=== PATIENT | male | born 1955 | race Caucasian/White ===

== ENCOUNTER → 2017-06-24 12:36 | Outpatient (CLI) | payer BC, SELFPAY ==
--- NOTE | 2017-06-24 12:45 | RAD_ITS ---
STUDY: X-RAY - RIGHT FOOT CLINICAL: Male, 62 years old. Fourth and fifth digit pain TECHNIQUE: 3 view(s) of the foot. COMPARISON: None. FINDINGS: Normal talus and tarsal bones. Calcaneal spurs Normal visualized subtalar, talonavicular, calcaneocuboid, tarsal and tarsometatarsal articulations. Normal metatarsi. Normal metatarsophalangeal joint of the great toe. Normal tibial and fibular sesamoid bones. Normal interphalangeal joint of the great toe. Normal phalanges of the great toe. Normal second through fifth metatarsophalangeal joints. Normal interphalangeal joints and phalanges of the lesser toes. The soft tissue structures are unremarkable. RAD/Foot min 3 Views IMPRESSION: Calcaneal spurs, no demonstrated fracture or aggressive osseous lesion Electronically Signed: Dami Martínez MD at 13:20 EDT , Service support ,
== END ==
PROVIDERS: Family Provider Family Medicine; PCP Family Medicine; Visit Provider Family Medicine
DX: M79.671 Pain in right foot (principal)
CPT/HCPCS: 73630

== ENCOUNTER → 2017-09-11 09:22 | Outpatient (CLI) | payer BC, SELFPAY ==
--- NOTE | 2017-09-11 09:26 | RAD_ITS ---
STUDY: X-RAY - RIGHT FOOT CLINICAL: Male, 62 years old. Pain. No injury. TECHNIQUE: 3 view(s) of the foot. COMPARISON: 06/24/2017. FINDINGS: There is a plantar calcaneal spur and there is a posterior calcaneal enthesophyte at the insertion site of the Achilles' tendon. Otherwise normal talus, calcaneus, and tarsal bones. Normal visualized subtalar, talonavicular, calcaneocuboid, tarsal and tarsometatarsal articulations. Normal metatarsi. There is mild degenerative arthrosis of the metatarsophalangeal joint of the hallux . Normal tibial and fibular sesamoid bones. Normal interphalangeal joint of the great toe. Normal phalanges of the great toe. Normal second through fifth metatarsophalangeal joints. Normal interphalangeal joints and phalanges of the lesser toes. There is nonspecific soft tissue swelling. RAD/Foot min 3 Views IMPRESSION: Mild degenerative changes. No demonstrated fracture, dislocation, or destructive osseous lesion. Electronically Signed: Binh Davidson MD at 5:52 EDT , Service support ,
[2017-09-11 12:17] LABS: Absolute Lymphocyte Count 1.25 X10^3/ul (0.83-4.51); Absolute Neutrophil Count 1.9 X10^3/uL (2.0-7.7); Basophil# 0.02 X10^3/uL; Basophil% 0.6 % (0-1); Eosinophil# 0.08 X10^3/uL; Eosinophils% 2.2 % (0-5); Hematocrit 42.2 % (40-54); Hemoglobin 14.1 g/dl (13.0-16.5); Lymphocyte # 1.25 X10^3/ul (4.0); Mean Corp Hgb Conc 33.4 g/gl (32-36); Mean Corpuscular Hgb 32.7 pg (27.0-32.0); Mean Corpuscular Volume 97.9 fL (80-94); Mean Platelet Vol. 11.5 fl (6.2-12.0); Monocyte# 0.36 X10^3/uL; Monocyte% 10.1 % (0-10); Neutrophil # 1.86 X10^3/uL (2.7-7.7); Neutrophil % 52.1 % (47-70); Platelet Count 174 K/mm3 (150-450); RBC Distribution Width CV 13.3 % (11.6-14.6); RBC Distribution Width SD 46.8 fl (35.1-43.9); Red Blood Count 4.31 M/mm3 (4.6-6.2); White Blood Count 3.6 K/mm3 (4.4-11.0)
[2017-09-11 12:36] LABS: AST(SGOT) 21 U/L (15-37); Alanine Aminotransfer ALT/SGPT 32 U/L (16-61); Albumin, Serum 3.8 g/dL (3.2-5.0); Alkaline Phosphatase 129 U/L (45-117); Anion Gap 4 (5-15); BUN 8 mg/dL (7-18); BUN/Creat Ratio 6.3 RATIO (10-20); Calcium,Total 8.9 mg/dL (8.5-10.1); Chloride 103 mmol/L (98-107); Cholesterol 148 mg/dL (200); Creatinine, Serum 1.26 mg/dL (0.70-1.30); EST Glomerular Filtration Rate 62 mL/min (>60); Est Glom Filt Rate - Afr Amer 75 mL/min (>60); Globulin 3.7 g/dL (2.2-4.2); Glucose 85 mg/dL (74-106); High Density Lipoprotein 41 mg/dL; Potassium 4.3 mmol/L (3.5-5.1); Protein, Total 7.5 g/dL (6.4-8.2); Sodium Level 138 mmol/L (136-145); Triglycerides 163 mg/dL; Very Low Density Lipoprotein 33 mg/dL (5-40)
[2017-09-11 12:42] LABS: POSITIVE COUNT NO; POSITIVE DIFFERENTIAL NO; POSITIVE MORPHOLOGY NO
== END ==
LOC: MTLAB 09:24
PROVIDERS: Family Provider Family Medicine; PCP Family Medicine; Visit Provider Family Medicine
DX: M79.671 Pain in right foot (principal); I10 Essential (primary) hypertension; D61.818 Other pancytopenia; Z12.5 Encounter for screening for malignant neoplasm of prostate
CPT/HCPCS: 36415; 73630; 80053; 80061; 85025

== ENCOUNTER → 2018-03-12 15:18 | Outpatient (CLI) | payer BC, SELFPAY ==
[2017-10-04 15:31] VITALS: BMI 26.6
--- NOTE | 2018-03-12 15:40 | RAD_ITS ---
STUDY: X-RAY CHEST REASON FOR EXAM: Male, 62 years old. Coronary artery disease. TECHNIQUE: PA and lateral views of the chest. COMPARISON: October 23, 2016. FINDINGS: The lungs are hyperinflated. There is chronic interstitial coarsening without acute infiltrate or mass. There is no demonstrated pleural abnormality. Normal size heart. Normal mediastinum and lalo. Normal visualized pulmonary arteries. There is atherosclerotic calcification of the aortic arch with tortuosity. There is dextroscoliosis and degenerative changes of the thoracic spine. There is degenerative osteoarthritis of the bilateral shoulders. There is no demonstrated abnormality of the visualized soft tissue structures of the upper abdomen. RAD/Chest PA and Lateral IMPRESSION: Question COPD without acute cardiopulmonary disease or interval change. Electronically Signed: Fabián Shanks DO at 16:15 EST Tel [phone], Service support ,
[2018-03-12 17:36] LABS: Hematocrit 42.4 % (40-54); Hemoglobin 13.9 g/dl (13.0-16.5); Mean Corp Hgb Conc 32.8 g/gl (32-36); Mean Corpuscular Hgb 32.6 pg (27.0-32.0); Mean Corpuscular Volume 99.3 fL (80-94); Mean Platelet Vol. 11.4 fl (6.2-12.0); Platelet Count 167 K/mm3 (150-450); RBC Distribution Width CV 13.2 % (11.6-14.6); RBC Distribution Width SD 47.2 fl (35.1-43.9); Red Blood Count 4.27 M/mm3 (4.6-6.2); White Blood Count 3.4 K/mm3 (4.4-11.0)
[2018-03-12 17:50] LABS: AST(SGOT) 16 U/L (15-37); Alanine Aminotransfer ALT/SGPT 31 U/L (16-61); Albumin, Serum 3.6 g/dL (3.2-5.0); Alkaline Phosphatase 127 U/L (45-117); Anion Gap 7 (5-15); BUN 10 mg/dL (7-18); BUN/Creat Ratio 8.3 RATIO (10-20); Calcium,Total 8.6 mg/dL (8.5-10.1); Chloride 106 mmol/L (98-107); EST Glomerular Filtration Rate 65 mL/min (>60); Est Glom Filt Rate - Afr Amer 79 mL/min (>60); Globulin 3.7 g/dL (2.2-4.2); Glucose 78 mg/dL (74-106); Potassium 3.7 mmol/L (3.5-5.1); Protein, Total 7.3 g/dL (6.4-8.2); Sodium Level 144 mmol/L (136-145)
[2018-03-12 18:10] LABS: Scan Indicated on CBC? Y/N NO
--- OUTSIDE RECORDS SUMMARY | 2018-04-28 20:42 | XMS RPT_ITS ---
:1955 Author Organization OHIP Care Team Providers Name Role Phone Tony Agosto Attending Unavailable Tony Agosto Referring Unavailable Tony Agosto Primary Care Unavailable Tony Agosto Attending Unavailable Tony Agosto Referring Unavailable [place] Unavailable José Santiago Attending Unavailable Ranney, Christopher Referring Unavailable Ranney, Christflaquitaer Attending Unavailable [place], Christopher Referring Unavailable [place] Unavailable Jack, José Attending Unavailable Ranney, Christopher Referring Unavailable Ranney, Christopher Primary Care Unavailable Joo Hicks Attending Unavailable Kurt, Joo Referring Unavailable [facility] Unavailable PROBLEMS PROBLEMS DATE TYPE CONDITION / CODE ATTENDING STATUS SOURCE 03/21/2018 Unknown M20.41 - Other Joo Hicks Active Georgi hammer toe(s) [facility] (acquired), [facility] Hospital foot / Repository M20.41(ICD-10) 03/12/2018 Unknown I25.10 - [facility] 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 / I25.10(ICD-10) 03/12/2018 Unknown Z01.818 - Encounter [facility] for other [facility] preprocedural Hospital examination / Repository Z01.818(ICD-10) 06/24/2017 Unknown M79.671 - Pain in [facility], [facility] right foot / [facility] M79.671(ICD-10) Hospital Repository PROCEDURES PROCEDURES No Procedure Records FoundRESULTS RESULTS OPERATIVE REPORT Observed: 03/21/2018 Status: F Source: GEORGI 9:31 PM [facility] REPOSITORY [facility] Medical Records Department [address] [place] [address] Operative Report 03/21/18 0836 MR#: [id number] Acct: [id number] Name: JOSE ENRIQUEWILLY Rep #: [id number] : 1955 62 From: Joo Hicks DPM PCP: Tony Agosto MD Status: [facility] [place] [facility] Report of Operation Date of Procedure: 03/21/18 Pre-Operative Diagnosis: Hammer toe 5th digit right foot. Wart/Callus with ingrown toenail medial border right 5th toe Post-Operative Diagnosis: Same Surgery/Procedure Performed:: Arthroplasty 5th toe right foot. Curettage with phenol application of wart/callus right foot. 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 Wart callus tissue from right 5th toe sent to pathology Description of Procedure: Indications: This is a 62 year-old male who has had chronic right foot pain to the 5th toes. He has trouble with shoes and with activities. He has tried nonsurgical care however his symptoms persist and are only getting worse. He was asking about surgical options. We discussed all of the options, and he elected to proceed with arthroplasty of the 5th toe w/ curettage and phenol application of wart/callus and P+A matricecomy medial border right 5th toe. This was discussed with him in great detail. We reviewed all the possible benefits, risks, goals and expectations. He expressed understanding and agreement. We also reviewed the typical postoperative and expected postoperative course. He expressed understanding and agreement and wanted to proceed forward with surgical intervention. All alternative options were discussed with him and all the possible benefits, risks of the alternative options were discussed with him as well in detail. He expressed understanding and agreement and again want to proceed for surgical intervention. The consent form was reviewed with him and he freely signed them. No guarantees were given or implied. Operative Procedure: The patient was brought back into the operating room and was placed onto the operative table in the supine position. He was carefully secured to the operating room table with safety belt around his waist. The patient did receive 2 g of intravenous cefazolin for antibiotic prophylaxis, the patient received anesthesia per the anesthesiologist. The skin w as cleansed with 70% Isopropyl alcohol and a total of 10mL of a 50/50 mixture of 1% Lidocaine plain and 0.5% Bupivacaine plain was given a a 5th ray block. A well-padded pneumatic tourniquet was applied around her right ankle. The right foot was scrubbed, prepped and draped in the usual aseptic fashion. Further attention was directed to the right 5th toe, which was contracted and hammered. There was a large prominence to the lateral aspect of the head of the proximal phalanx, there was a skin lesion to the distal medial toe consistent with a wart vs porokeratosis callus lesion, also the medial border of the 5th digit toenail was significantly incurvated. The right foot was elevated for 3 minutes and the right ankle pneumatic tourniquet was inflated to 250mmHg. Two oblique semi-elliptical converging skin incisions were made around the dorsal aspect of the proximal interphalangeal joint (PIPJ) of the 5th toe. The skin within the incisions was excised. The extensor digitorum longus tendon was visualized and incised transversely with a 15 blade. The dorsal PIPJ joint capsule was incised with a 15 blade. The extensor tendon was reflected off of the head of the proximal phalanx. The PIPJ was visulized, there was significant degenerative changes on the head of the proximal phalanx, the cartilage was completely worn away with erosions present. There was large exostosis to the distal lateral aspect of the head of the proximal phalanx. The head of the proximal phalanx was resected using a powered sagittal saw, and this was sent to pathology. The site was flushed out with copious amounts of normal saline solution. A 0.045 inch kwire was placed through the phalanges of the toe holding the toe in rectus position. This was confirmed with intra operative fluoroscopy. The site was again flushed out with copious amounts of normal saline solution. The joint capsule and extensor digitorum longus tendon was reapproximated using 3-0 Vicryl, the skin was reapproximated using 4-0 Nylon. The kwire was trimmed outside of the toe at the distal aspect and was capped with a pin cap. Further attention was directed to the skin lesion right 5th toe and incurvated medial nail border on the 5th toe. The medial nail border was freed up and resected. Phenol was applied to the medial nail matrix foe 30 seconds x 3 applications. The skin lesion was consistent with a wart, and was curetteged out. This was sent to pathology for further evaluation. Phenol was applied to the base of the site for 30 seconds. The sites were flushed out with 70% Isopropyl alcohol. The right ankle tourniquet was deflated and there was immediate return of warmth and perfusion to the foot, including all toes. CFT < 2 seconds to all toes with normal temperature. Total tourniquet time was 26 minutes. A dressing was applied which consisted of Betadine soaked Adaptic, 4x4 gauze, kerlix and stefania bandage. The patient tolerated the above procedure well and anesthesia well with no complications. The patient was transported from the operative room to the recovery room with vital signs stable and in good condition. Post operative orders were placed, and post operative instructions were reviewed with the patient and his who was with him today (verbal and written). Limit weightbearing right forefoot, keep the dressing clean, dry and intact. Keep foot elevated for at least 50 minutes of every hour. Post operative prescriptions for Tylenol #3 for pain control. Patient to follow up in 1 week, sooner if needed. Also of note post operative xrays were obtained of the right foot in the recovery room, which were reviewed. These confirmed arthroplasty of the 5th toe with kwire intact, and toe in good alignment. Grafts/Implants Used: 1 x 0.045 inch kwire - Complications None 03/21/182130 <Electronically signed by Joo Hicks DPM> Date Joo Hicks DPM CC: Tony Agosto MD; Joo Hicks DPM Signed DISCHARGE INSTRUCTION Observed: 03/21/2018 Status: F Source: GRANGER 8:36 AM [facility] REPOSITORY [facility] Medical Records Department [address] [place] [address] Instructions for Home/Discharge Instructions 03/21/18 0834 MR#: [id number] Acct: [id number] Name: WILLY QUISPE Rep #: [id number] : 1955 62 From: Joo Hicks DPM PCP: Tony Agosto MD Status: [place] [facility] [place] Diet: Light diet - advance as tolerated Discharge Activity: May Not Drive Weight Bearing Status: Partial weight bearing - Weightbear on heel right foot with use of surgical shoe Keep extremity elevated above heart level: Right Leg - Keep right foot elevated for at least 50 minutes of every hour using pillows Call your doctor if your incision/area has: Continuous Slow Oozing, Sudden Increased Bleeding, Increased Pain/ Swelling, Foul Smelling Discharge Call your doctor if you observe: Fever of 101 or Higher, Shortness of breath, Chest pain, Increased palpitations (irregular heartbeat), Calf discomfort, Uncontrolled pain Cleanse incision/area with: Do not get Incision Wet, Keep Dressing Clean AND Dry Allergies/Adverse Reactions: Allergies No Known Allergies Allergy (Verified 03/13/18 14:57) Medications to take at Discharge Aspirin [Aspirin EC] 81 mg PO DAILY 06/17/16 atorvastatin 40 mg tablet 40 mg PO DAILY #90 tab 03/06/17 nitroglycerin 0.4 mg sublingual tablet 0.4 mg SUBLINGUAL Q5M PRN 03/14/17 lisinopril 5 mg tablet 5 mg PO QDAY #90 tab 03/29/17 metoprolol tartrate 25 mg tablet 12.5 mg PO BID #90 tab 06/19/17 Acetaminophen/Codeine #3 [Tylenol#3] 1 - 2 tab PO Q6H PRN PRN #15 tab 03/21/18 The following prescriptions were given: Acetaminophen/Codeine #3 [Tylenol#3] 1 - 2 tab PO Q6H PRN PRN #15 tab PRN Reason: Pain Primary Care Physician: Santhosh Agosto MD [Primary Care Provider] - Test Results: Test results from this visit will be discussed in further detail at your follow-up appointment, if applicable. Please Follow Up With: Joo Hicks DPM When: within 1 week, sooner if needed 03/21/18 0836 <Electronically signed by Joo Hicks DPM> Date Joo Hicks DPM CC: Tony Agosto MD FOOT MIN 3 VIEWS Observed: 03/21/2018 Status: F Source: GE[place]GI 8:34 AM [facility] REPOSITORY [facility] Imaging Services [address] [place] [address] Foot min 3 Views MR#: [id number] Acct: [id number] Name: JOSE ENRIQUEWILLY Rep #: [id number] : 1955 M 62 From: Jamey Clement MD PCP: Tony Agosto MD Status: [facility] Study: Foot min 3 Views Date of Exam: 03/21/18 Exam# [id number] Ordering Dr: Joo Hicks DPM STUDY: X-RAY - RIGHT FOOT CLINICAL: Male, 62 years old. Right 5th toe arthroplasty. Postop. TECHNIQUE: 3 view(s) of the foot. COMPARISON: None. FINDINGS: There has been resection of the head of the proximal phalanx 5th digit. Longitudinal pin fixation through the proximal distal phalanx. Excellent anatomic alignment. Remainder of the foot are unremarkable. RAD/Foot min 3 Views IMPRESSION: Surgical construct appears intact. Correlate with operative technique. Electronically Signed: Jamey Clement MD at 10:29 EST Tel , Service support , CC: Tony Agosto MD; Joo Hicks DPM Content Checker: Signed BONE (FX/NONFRACTURE) Observed: 03/21/2018 Status: F Source: GE[place]GI 7:30 AM [facility] REPOSITORY Patient: WILLY QUISPE : 1955 (62/M) Acct Num: [id number] Phys: Joo Hicks DPM Unit Num: [id number] [place] [facility] Specimen: [id number] Received: 03/21/18 - 1026 Spec Type: Bone TISSUES 1 TISSUES: A. Bone of foot, NOS B. VERRUCA COMMENT B. The specimen consists entirely of keratin and superficial epidermis only. The lesion may represent superficial portions of a verruca. Clinical correlation is suggested. GROSS DESCRIPTION A - Received in fixative is one container labeled with the patient's name and designated second bone right fifth toe. The specimen consists of a piece of bone measuring 1.7 x 1 x 0.7 cm. Also present in the container is a detached piece of bone measuring 0.1 cm in greatest dimension. The entire specimen is submitted in one cassette after decalcification. B - Received in fixative is one container labeled with the patient's name and designated wart right fifth toe. The specimen consists of a piece of cook- white skin measuring 0.7 x 0.5 x 0.2 cm. The entire specimen is submitted in one cassette. / SJ:josé 03/21/18 TC:5 CPT: 78145 x2, 11556 HEADER OPERATION: Arthroplasty fifth toe PRE-OP DIAGNOSIS: Right foot pain TISSUE SUBMITTED: A - Second bone from right fifth toe, B - Wart right fifth toe MICROSCOPIC DESCRIPTION Slides are reviewed. MICROSCOPIC DIAGNOSIS A. Second bone from right fifth toe, biopsy: Reactive and mild reparative change. No evidence of osteomyelitis. B. Skin lesion of right fifth toe, biopsy: Hyperkeratotic skin. See comment. AM:josé 03/28/18 Signed Scott Ray, 03/28/18 <signature on file> Performed By: #### PBON #### [facility] [address] [place] [address]. [place], [address] TOE(S) MIN 2 VIEWS Observed: 03/21/2018 Status: F Source: GRANGER 2:09 AM [facility] REPOSITORY [facility] Imaging Services [address] [place] [address] Toe(s) Min 2 Views MR#: [id number] Acct: [id number] Name: WILLY QUISPE Rep #: [id number] : 1955 M 62 From: Jamey Clement MD PCP: Tony Agosto MD Status: [facility] Study: Toe(s) Min 2 Views Date of Exam: 03/21/18 Exam# [id number] Ordering Dr: oJo Hicks DPM STUDY: X-RAY RIGHT FOOT, 5TH TOE REASON FOR EXAM: Male, 62 years old. Arthroplasty 5th digit TECHNIQUE: 15 view(s) of the toe were obtained. Intraoperative fluoroscopy. The radiologist was not present during the procedure. Submitted for interpretation only. COMPARISON: None. FINDINGS: Images depict pin fixation between the proximal and distal phalanx of the 1st digit, the distal head of the proximal phalanx resected. Anatomic alignment achieved. RAD/Toe(s) Min 2 Views IMPRESSION: Anatomic alignment. Correlate operative report. Electronically Signed: Jamey Clement MD at 16:44 EST Tel , Service support , CC: Tony Agosto MD; Joo Hicks DPM Content Checker: Signed CHEST PA AND LATERAL Observed: 03/12/2018 Status: F Source: GRANGER 3:45 PM [facility] REPOSITORY [facility] Imaging Services [address] [address] Chest PA and Lateral MR#: [id number] Acct: [id number] Name: JOSE ENRIQUEWILLY Rep #: [id number] : 1955 M 62 From: Fabián Shanks DO PCP: Tony Agosto MD Status: REG CLI Study: Chest PA and Lateral Date of Exam: 03/12/18 Exam# [id number] Ordering Dr: Santhosh Agosto MD STUDY: X-RAY CHEST REASON FOR EXAM: Male, 62 years old. Coronary artery disease. TECHNIQUE: PA and lateral views of the chest. COMPARISON: October 23, 2016. FINDINGS: The lungs are hyperinflated. There is chronic interstitial coarsening without acute infiltrate or mass. There is no demonstrated pleural abnormality. Normal size heart. Normal mediastinum and lalo. Normal visualized pulmonary arteries. There is atherosclerotic calcification of the aortic arch with tortuosity. There is dextroscoliosis and degenerative changes of the thoracic spine. There is degenerative osteoarthritis of the bilateral shoulders. There is no demonstrated abnormality of the visualized soft tissue structures of the upper abdomen. RAD/Chest PA and Lateral IMPRESSION: Question COPD without acute cardiopulmonary disease or interval change. Electronically Signed: Fabián Shanks at 16:15 EST Tel [phone], Service support , CC: Tony Agosto MD Content Checker: Signed COMPREHENSIVE METABOLIC Collected: 03/12/2018 Status: F Source: GE[place]GI CHILD 3:22 PM [facility] REPOSITORY TYPE CODE TESTS RESULT OUT OF RANGE REFERENCE UNITS LAB L501.0100 74-106 mg/dL Normal GLU 78 Result Comment: Please note revised GLUCOSE reference range effective 2017. LAB L501.1000 7-18 mg/dL Normal BUN 10 LAB L501.1100 0.70-1.30 mg/dL Normal CREAT,SERUM 1.20 Result Comment: The validity of the calculated GFR AND GFRAA in patients over 70 years has not been determined. Clinical correlation is essential. LAB L501.1110 >60 mL/min Normal EST GFR 65 Result Comment: Non- GFR Calc LAB L501.1115 >60 mL/min Normal EST GFR - AA 79 Result Comment: GFR Calc LAB L501.1300 10-20 RATIO Low BUN/CRE 8.3 LAB L501.1500 6.4-8.2 g/dL Normal T PROT 7.3 LAB L501.1800 3.2-5.0 g/dL Normal ALB 3.6 LAB L501.1950 2.2-4.2 g/dL Normal GLOB 3.7 LAB L501.2000 0.9-2.4 RATIO Normal A/G 1.0 LAB L501.2200 8.5-10.1 mg/dL Normal CA 8.6 LAB L501.4100 15-37 U/L Normal AST 16 LAB L501.4305 45-117 U/L High ALK P 127 LAB L501.4405 16-61 U/L Normal ALT 31 LAB L501.4600 0.20-1.00 mg/dL Normal T BILI 0.30 LAB L501.5300 136-145 mmol/L Normal NA 144 LAB L501.5600 3.5-5.1 mmol/L Normal K 3.7 LAB L501.5900 98-107 mmol/L Normal CL 106 LAB L501.6100 21.0-32.0 mmol/L Normal CO2 31.0 LAB L501.6200 5-15 Normal GAP 7 Performed By: #### L500.4050, L100.0500 #### [facility] [address] [place], [address] CBC-COMPLETE BLOOD CNT Collected: 03/12/2018 Status: F Source: GE[place]GI NO DIFF 3:22 PM [facility] REPOSITORY TYPE CODE TESTS RESULT OUT OF RANGE REFERENCE UNITS LAB L100.1000 4.4-11.0 K/mm3 Low WBC 3.4 LAB L100.1200 4.6-6.2 M/mm3 Low RBC 4.27 LAB L100.1300 13.0-16.5 g/dl Normal HGB 13.9 LAB L100.1400 40-54 % Normal HCT 42.4 LAB L100.1500 80-94 fL High MCV 99.3 LAB L100.1600 27.0-32.0 pg High MCH 32.6 LAB L100.1700 32-36 g/gl Normal MCHC 32.8 LAB L100.1810 11.6-14.6 % Normal RDW CV 13.2 LAB L100.1820 35.1-43.9 fl High RDW SD 47.2 LAB L100.1900 150-450 K/mm3 Normal PLT 167 LAB L100.2000 6.2-12.0 fl Normal MPV 11.4 Performed By: #### L500.4050, L100.0500 #### [facility] [address] [place], [address] CARDIOLOGY VISIT Observed: 10/04/2017 Status: F Source: GE[place]GI REPORT 4:39 PM [facility] REPOSITORY [facility] [address] [place] [address] OFFICE VISIT Date of Service: 10/04/17 MR#: [id number] Acct: [id number] Name: WILLY QUISPE Joyce Rep #: [id number] : 1955 Provider: José Santiago MD Age/Sex: 62/M Location[place] [facility] Status: Signed HPI HPI Details: WILLY QUISPE, is a 62 M who presents to the office today for for outpatient cardiovascular follow-up. He states that in March 2017, after consuming approximately 3 beers, he apparently lost consciousness, fell from a barstool, resulted in ecchymoses and supraorbital fractures above the left orbit, resulting in a [facility] evaluation of multiple days. To the best of his knowledge there was no definitive etiology for his event found. He states he was eventually released home for continued outpatient follow-up. He states that he has not experienced this with any alcohol intake in the past. He does not recall prior to the event or following the event or since his event having any resting or exertional chest discomfort. There is been no episodes of difficulty breathing, orthopnea, or PND. There has been no recurrent near syncope or syncope. He has noted no obvious palpitations. He did have a transthoracic echocardiogram performed at [facility]. A copy of the report was received. According to their report his LV was thought to be borderline low with an LVEF of 50-55%. Additional [facility] discharge summaries and her medical records are unavailable for review at this time. He did have his lipid labs performed recently in August of this year. They appear to be under good control. Intake Vital Signs10/04/17 Height 6 ft 1 in 10/04/17 Weight: 202 lb 10/04/17 Body Mass Index (BMI) 26.6 10/04/17 Blood Pressure 104/60 Intake Visit Reasons: 6 M FU Allergies No Known Allergies Allergy (Verified 10/04/17 15:31) Medications Aspirin [Aspirin EC] 81 mg PO DAILY 06/17/16 [History Confirmed 10/04/17] atorvastatin 40 mg tablet 40 mg PO DAILY #90 tab 03/06/17 [Rx Confirmed 10/04/17] nitroglycerin 0.4 mg sublingual tablet 0.4 mg SUBLINGUAL Q5M PRN 03/14/17 [History Confirmed 10/04/17] lisinopril 5 mg tablet 5 mg PO QDAY #90 tab 03/29/17 [Rx Confirmed 10/04/17] metoprolol tartrate 25 mg tablet 12.5 mg PO BID #90 tab 06/19/17 [Rx Confirmed 10/04/17] [facility] Medical History Ischemic cardiomyopathy (Chronic) Presence of stent in coronary artery (Chronic 04/2013) 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 (Resolved) Hyperlipidemia (Chronic) Abnormal electrocardiogram [ECG] [EKG] (Chronic) Chest pain (Acute) Long-term use of high-risk medication (Chronic) Dilated cardiomyopathy (Chronic) Non-rheumatic tricuspid valve insufficiency (Chronic) Syncope (Acute) Leukopenia (Acute) Tobacco abuse (Chronic) History of echocardiogram (Resolved 03/2017) Dehydration (Inactive) Leukopenia (Inactive) Tobacco use (Inactive) Surgical History History of cardiac catheterization (Resolved) S/P wrist surgery (Resolved) Social History Smoking Status: Current every day smoker alcohol intake: current substance use type: does not use ROS Const Const: Negative for fatigue, weakness, weight gain, weight loss, frequent falls or excessive sweating Eyes Eyes: Negative for change in vision, blurry vision or transient loss of vision ENT ENT: Negative for dizziness or balance problems Cardio Chest Pain: No Palpitations: No Edema: None, Left (pedal) Muscle aches with walking: None Resp Respiratory: Negative for SOB with activity or SOB at rest GI GI: Negative vomiting or vomiting blood/hematemesis : Negative for hematuria Musc Musc: Negative for balance problems, muscle aches/ myalgia, muscle weakness or joint pain Skin Skin: Negative non-healing lesions or rash Neuro Neuro: Negative for weakness, blurry vision, dizziness, lightheadedness, frequent falls or orthostatic symptoms Gerard Hematologic/Lymphatic: Negative for easy bleeding Endo Endo: Negative for fatigue or excessive sweating Psych Psych: Negative for anxiety or depression Allergy Allergy/Immunology: Negative for hives, Negative for rash Cardiology Exam Const Appearance: cooperative, healthy appearing, comfortable, no acute distress, well developed and well groomed Nutritional Appearance: average body habitus Orientation: alert, awake and oriented x3 Head Head: normal to inspection, normocephalic and atraumatic Ears: hearing grossly normal bilaterally Nose: external nose normal Face and Sinus: face symmetric Mouth: oral mucosae normal Teeth and gingiva: fair dentition Eyes Eyelids: eyelids normal Conjunctivae: conjunctivae normal Pupils: PERRL EOM: EOM intact bilaterally Neck Neck: normal visual inspection and full ROM Carotids: normal carotid upstroke Chest Chest inspection: normal inspection of the chest and symmetric chest movement Auscultation: Bilateral: Clear to Auscultation Cardio Palpation: normal PMI Rate: regular rate Rhythm: regular rhythm Heart sounds: S1 normal and S2 normal GI GI: normal to inspection, bowel sounds present, soft and no hepatosplenomegaly Neuro General: alert, awake, oriented x3, gait normal, moves all extremities and no focal motor deficits Skin Skin: no rashes or lesions noted Extremities Pulses: Normal: Right Radial Pulse, Left Radial Pulse Lower Extremity Edema: None: Bilateral Psych Psychological: normal affect Supplemental Info His most recent transthoracic echocardi[facility] was performed on 06/18/2016. At that time his left ventricle was normal with an LVEF of 55%. He had mild MR/TR. His estimated RV systolic pressure was 28 mmHg. He had an exercise tolerance test/imaging study performed at [facility] on 07/21/2015. The results are as noted below. EXERCISE TOLERANCE TEST: The patient exercised on a Teddy protocol for 12 minutes completing stage 4, achieving a peak heart rate of 157 beats per minute (97% predicted maximum heart rate) and a peak blood pressure of 184/90 mmHg and a peak MET capacity of 13 METs. The baseline ECG demonstrated sinus bradycardia. The peak exercise ECG demonstrated somatic/motion artifact with no obvious ECG changes. There were no cardiac dysrhythmias pretest, during exercise, or recovery. The functional capacity was considered excellent. The patient had no complaint of chest discomfort during exercise or recovery. The examination was discontinued secondary to completion of protocol. IMPRESSION: 1. Technically adequate (percent predicted maximum heart rate greater than 85%) exercise tolerance test. 2. Peak exercise ECG with somatic/motion artifact with no obvious ECG changes. 3. Nuclear images pending. MYOCARDIAL PERFUSION IMAGING STUDY: TECHNIQUE: The patient was injected with 12.0 mCi of Tc99m Cardiolite and subsequently rest SPECT Cardiolite nuclear imaging was obtained in the horizontal long, vertical long and short axes views. The patient exercised on a Teddy protocol for 12 minutes completing stage 4, achieving a peak heart rate of 157 beats per minute (97% predicted maximum heart rate) and a peak blood pressure of 184/90 mmHg and a peak MET capacity of 13 METs. The patient was injected with 35.0 mCi of Tc99m Cardiolite and subsequently stress SPECT Cardiolite nuclear imaging was obtained in the horizontal long, vertical long and short axes views. A gated Cardiolite study at peak stress was obtained. INTERPRETATION: Rest and stress SPECT Cardiolite nuclear imaging, status post realignment and normalization, demonstrates areas of extracardiac/hepatic and gastrointestinal tracer uptake near the inferior and inferolateral segments. This is more prominent at rest as opposed to stress. There is notation of diminished tracer uptake in portions of the basal inferoseptal/basal inferior segments without significant change between rest and stress. There is notation of subtle decreased tracer uptake in portions of the mid inferior segments, which again appear to be without significant change between rest and stress. There is notation of end systolic thickening and brightening. The gated Cardiolite study demonstrates myocardial thickening and inward wall motion. The reported LVEF is 58%. The aforementioned changes appear compatible with the effects of soft tissue attenuation/artifact with no myocardial perfusion changes considered diagnostic for stress-induced myocardial ischemia or previous myocardial injury/infarction. IMPRESSION: 1. Rest and stress SPECT Cardiolite nuclear imaging demonstrate myocardial perfusion changes appearing compatible with the effects of soft tissue attenuation/artifact with no myocardial perfusion changes considered diagnostic for stress- induced myocardial ischemia or previous myocardial injury/infarction. 2. The gated Cardiolite study reports an LVEF of 58% He has previous cardiac catheterization/PCI report was performed at [facility] on 04/03/2013. According to the report he had moderately severely elevated left ventricular end-diastolic pressure at 29 mmHg The left ventricular ejection fraction was 50% Moderate to severe hypokinesis of the distal inferior wall the left ventricle No aortic stenosis No mitral regurgitation Acute myocardial infarction due to the acute occlusion in the proximal to mid first OM Right dominant coronary system Severe two-vessel coronary artery disease Successful thrombectomy and stenting of the acute thrombus/occluded proximal to mid first OM. (Drug-eluting) 60% stenosis in the proximal RCA Assessment AND Plan 1. Atherosclerosis of e[place] coronary artery of [place] heart without angina pectoris I25.10 Thrombectomy AND PTCA/SHAMIKA to mid OM 04/14 Plan At the present time he appears to be doing well. He will continue his current medical management. 2. Presence of stent in coronary artery Z95.5 Thrombectomy AND PTCA/SHAMIKA to mid OM 04/14 Plan He does have a history of PCI as noted above. Again he will continue his current medical therapy. As he is greater than 1 year plus following his most recent PCI, and noting his syncopal event and subsequent trauma, it appears he was discontinued from his antiplatelet therapy with respect to his Brilinta. He will be allowed to remain off of that at this time 3. Cardiomyopathy, ischemic I25.5 Plan His most recent echocardiogram is as described above. He is continuing medical therapy. He will continue to be followed over time. 4. Vasovagal syncope R55 Plan He did have a recurrent syncopal event. It is unclear as occurred post alcohol intake, whether it was related to his alcohol intake, potential change in vital signs such as hypotension, etc. He states he had a prolonged stay at [facility] with no definitive etiology given. An attempt will be made to retrieve their medical records for further continuity of care. In the meantime he was counseled on the need to minimize his alcohol intake especially with respect to his medications, etc. If he has recurrent near syncopal or syncopal events he should notify the office and/or present to the hospital for further evaluation and care 5. Hyperlipidemia, unspecified hyperlipidemia type E78.5 Plan His lipid labs appear to be under good control. He will continue medical management 6. Long-term use of high-risk medication Z79.899 Plan He will have future laboratory studies performed as deemed appropriate peer Plan Detail Additional Comments Thank you for allowing me to participate in the care of your patient. Please don't hesitate to call if any issues arise. This note was generated using a voice recognition system and there may be incorrect words, spelling or punctuation that were not noted when reviewing the office note prior to saving. Follow Up 9 Months (PFM) 10/04/17 (Copy of [facility] DC summary) Coding Level of Care Code Off vis,est,level 3 Diagnoses Atherosclerosis of [place] coronary artery of [place] heart without angina pectoris I25.10 [place] vs. transplanted heart: e[place] heart Presence of stent in coronary artery Z95.5 Cardiomyopathy, ischemic I25.5 Vasovagal syncope R55 Syncope type: vasovagal syncope Hyperlipidemia, unspecified hyperlipidemia type E78.5 Hyperlipidemia type: unspecified Long-term use of high-risk medication Z79.899 Coding Level of Care Code Off vis,est,level 3 Diagnoses Atherosclerosis of [place] coronary artery of [place] heart without angina pectoris I25.10 [place] vs. transplanted heart: [place] heart Presence of stent in coronary artery Z95.5 Cardiomyopathy, ischemic I25.5 Vasovagal syncope R55 Syncope type: vasovagal syncope Hyperlipidemia, unspecified hyperlipidemia type E78.5 Hyperlipidemia type: unspecified Long-term use of high-risk medication Z79.899 10/04/17 1639 <Electronically signed by José Santiago MD> Date José Santiago MD Cosigner Signature: Date (if applicable) CC: Tony Agosto MD COMPREHENSIVE METABOLIC Collected: 09/11/2017 Status: F Source: GE[place]GI DANYELL 9:33 AM [facility] REPOSITORY Order Comment: Order Date: 04/29/17 Order Info: [id number] - CMP Order Info: [id number] - LIPID TYPE CODE TESTS RESULT OUT OF RANGE REFERENCE UNITS LAB L501.0100 74-106 mg/dL Normal GLU 85 Result Comment: Please note revised GLUCOSE reference range effective 2017. LAB L501.1000 7-18 mg/dL Normal BUN 8 LAB L501.1100 0.70-1.30 mg/dL Normal CREAT,SERUM 1.26 Result Comment: The validity of the calculated GFR AND GFRAA in patients over 70 years has not been determined. Clinical correlation is essential. LAB L501.1110 >60 mL/min Normal EST GFR 62 Result Comment: Non- GFR Calc LAB L501.1115 >60 mL/min Normal EST GFR - AA 75 Result Comment: GFR Calc LAB L501.1300 10-20 RATIO Low BUN/CRE 6.3 LAB L501.1500 6.4-8.2 g/dL Normal T PROT 7.5 LAB L501.1800 3.2-5.0 g/dL Normal ALB 3.8 LAB L501.1950 2.2-4.2 g/dL Normal GLOB 3.7 LAB L501.2000 0.9-2.4 RATIO Normal A/G 1.0 LAB L501.2200 8.5-10.1 mg/dL Normal CA 8.9 LAB L501.4100 15-37 U/L Normal AST 21 LAB L501.4305 45-117 U/L High ALK P 129 LAB L501.4405 16-61 U/L Normal ALT 32 LAB L501.4600 0.20-1.00 mg/dL Normal T BILI 0.70 LAB L501.5300 136-145 mmol/L Normal NA 138 LAB L501.5600 3.5-5.1 mmol/L Normal K 4.3 LAB L501.5900 98-107 mmol/L Normal CL 103 LAB L501.6100 21.0-32.0 mmol/L Normal CO2 31.0 LAB L501.6200 5-15 Low GAP 4 Performed By: #### L500.4050, L500.4100 #### [facility] [address] [place], [place], [id number] LIPID PROFILE Collected: 09/11/2017 Status: F Source: GRANGER 9:33 AM [facility] REPOSITORY Order Comment: Order Date: 04/29/17 Order Info: [id number] - CMP Order Info: [id number] - LIPID TYPE CODE TESTS RESULT OUT OF RANGE REFERENCE UNITS LAB L501.4900 200 mg/dL Normal CHOL 148 Result Comment: <200 mg/dL Desirable 200-240 mg/dL Borderline >240 mg/dL High Risk LAB L501.5000 mg/dL Normal TRIG 163 Result Comment: The drugs N-Acetylcysteine and Metamizole may falsely depress this assay. Serum Triglycerides Reference Interval Normal <150 mg/dL Borderline high 150 - 199 mg/dL High 200 - 499 mg/dL Very High > or = 500 mg/dL LAB L501.6400 mg/dL Normal HDL 41 Result Comment: The drugs N-Acetylcysteine and Metamizole may falsely depress this assay. Reference Range HDL <40 mg/dL Low HDL Cholesterol HDL >or= 60 mg/dL High HDL Cholesterol LAB L501.6500 0-130 mg/dL Normal LDL 74 LAB L501.6600 5-40 mg/dL Normal VLDL 33 Performed By: #### L500.4050, L500.4100 #### [facility] [address] [place], [place], [address] CBC W/DIFF, AUTOMATED Collected: 09/11/2017 Status: F Source: GEORGI 9:33 AM [facility] REPOSITORY Order Comment: Order Date: 04/29/17 Order Info: [id number] - CBCD TYPE CODE TESTS RESULT OUT OF RANGE REFERENCE UNITS LAB L100.1000 4.4-11.0 K/mm3 Low WBC 3.6 LAB L100.1200 4.6-6.2 M/mm3 Low RBC 4.31 LAB L100.1300 13.0-16.5 g/dl Normal HGB 14.1 LAB L100.1400 40-54 % Normal HCT 42.2 LAB L100.1500 80-94 fL High MCV 97.9 LAB L100.1600 27.0-32.0 pg High MCH 32.7 LAB L100.1700 32-36 g/gl Normal MCHC 33.4 LAB L100.1810 11.6-14.6 % Normal RDW CV 13.3 LAB L100.1820 35.1-43.9 fl High RDW SD 46.8 LAB L100.1900 150-450 K/mm3 Normal PLT 174 LAB L100.2000 6.2-12.0 fl Normal MPV 11.5 LAB L100.2100 47-70 % Normal NEUT% 52.1 LAB L100.2200 19-41 % Normal LY% 35.0 LAB L100.2300 0-10 % High MONO% 10.1 LAB L100.2400 0-5 % Normal EO% 2.2 LAB L100.2500 0-1 % Normal BASO% 0.6 LAB L100.2550 0.0-0.9 % Normal IM GRAN % 0.000 Result Comment: IG% - Immature Granulocytes (promyelocytes, myelocytes and metamyelocytes) > 1% indicates that a LEFT SHIFT is Present. LAB L100.2620 2.0-7.7 X10 3/uL Low Absolute Neut 1.9 LAB L100.2720 0.83-4.51 X10 3/ul Normal Absolute Lymph 1.25 Performed By: #### L100.0100 #### [facility] [address] [place], [address] FOOT MIN 3 VIEWS Observed: 09/11/2017 Status: F Source: GE[place]GI 9:27 AM [facility] REPOSITORY [facility] [address] [place] [address] Foot min 3 Views MR#: [id number] Acct: [id number] Name: WILLY QUISPE Rep #: [id number] : 1955 M 62 From: Binh Davidson MD PCP: Tony Agosto MD Status: REG CLI Study: Foot min 3 Views Date of Exam: 09/11/17 Exam# [id number] Ordering Dr: Santhosh Agosto MD STUDY: X-RAY - RIGHT FOOT CLINICAL: Male, 62 years old. Pain. No injury. TECHNIQUE: 3 view(s) of the foot. COMPARISON: 06/24/2017. FINDINGS: There is a plantar calcaneal spur and there is a posterior calcaneal enthesophyte at the insertion site of the Achilles' tendon. Otherwise normal talus, calcaneus, and tarsal bones. Normal visualized subtalar, talonavicular, calcaneocuboid, tarsal and tarsometatarsal articulations. Normal metatarsi. There is mild degenerative arthrosis of the metatarsophalangeal joint of the hallux . Normal tibial and fibular sesamoid bones. Normal interphalangeal joint of the great toe. Normal phalanges of the great toe. Normal second through fifth metatarsophalangeal joints. Normal interphalangeal joints and phalanges of the lesser toes. There is nonspecific soft tissue swelling. RAD/Foot min 3 Views IMPRESSION: Mild degenerative changes. No demonstrated fracture, dislocation, or destructive osseous lesion. Electronically Signed: Binh Davidson MD at 5:52 EDT , Service support , CC: Tony Agosto MD Content Checker: Signed FOOT MIN 3 VIEWS Observed: 06/24/2017 Status: F Source: GE[place]GI 12:44 PM [facility] REPOSITORY [facility] [address] [place] [address] Foot min 3 Views MR#: [id number] Acct: [id number] Name: WILLY QUISPE Rep #: [id number] : 1955 M 62 From: Joel Martínez MD PCP: Tony Agosto MD Status: REG CLI Study: Foot min 3 Views Date of Exam: 06/24/17 Exam# [id number] Ordering Dr: Santhosh Agosto MD STUDY: X-RAY - RIGHT FOOT CLINICAL: Male, 62 years old. Fourth and fifth digit pain TECHNIQUE: 3 view(s) of the foot. COMPARISON: None. FINDINGS: Normal talus and tarsal bones. Calcaneal spurs Normal visualized subtalar, talonavicular, calcaneocuboid, tarsal and tarsometatarsal articulations. Normal metatarsi. Normal metatarsophalangeal joint of the great toe. Normal tibial and fibular sesamoid bones. Normal interphalangeal joint of the great toe. Normal phalanges of the great toe. Normal second through fifth metatarsophalangeal joints. Normal interphalangeal joints and phalanges of the lesser toes. The soft tissue structures are unremarkable. RAD/Foot min 3 Views IMPRESSION: Calcaneal spurs, no demonstrated fracture or aggressive osseous lesion Electronically Signed: Dami Martínez MD at 13:20 EDT , Service support , CC: Tony Agosto MD Content Checker: Signed ALLERGIES ALLERGIES DATE TYPE / CODE NAME / CODE REACTION SEVERITY SOURCE 03/13/2018 Drug No Known Unknown [facility] Allergy/4160 Allergies/F00 Hospital 32160(SNOMED [id number](RXNOR Repository CT) M) ENCOUNTERS ENCOUNTERS ADMIT/DISCHARGE ACCOUNT ADMITTING ENCOUNTER LOCATION SOURCE NUMBER CLASS 03/21/2018/ [id number] Ambulatory [place] 8 4 [facility] ing:SDCRoom: Repository AC04 03/12/2018 [id number] Ambulatory [place] 7 [facility] ing:MTLAB Repository 10/16/2017 [id number] Ambulatory BMSBuilding:B [place] 1 [facility] Repository 10/04/2017/ [id number] Ambulatory BMSBuilding:B [place] 8 7 [facility] Repository 09/11/2017 [id number] Ambulatory [place] Georgi 3 [facility] ing:MTLAB Repository 06/24/2017 [id number] [place] 0 [facility] ing:MTRAD Repository PAYERS PAYERS ENCOUNTER GUARANTOR PAYER SUBSCRIBER SOURCE 03/21/2018 [place] [id number] Insurance:ANTHEMPolic RETTIGDOB: [facility] y [place]: [id number] [id number] Repository [address]Gaf: 330) Date:0365-95-70CP [phone] () [address] [place] [id number]: 03/21/2018 Secondary NOT GIVENUNK [place] Insurance:SELF PAY [facility] Number: Effective Repository Date:2018-02-03 03/12/2018 WILLY Cook Primary WILLY [place] [id number] Insurance:ANTHEMPolic RETTIGDOB: [facility] y Number: [id number] [id number] Repository [address]Rsf: 330) Date:7967-14-02EN [phone] () [id number] [place] [id number]: 03/12/2018 Secondary NOT GIVENUNK [place] Insurance:SELF PAY [facility] Number: Effective Repository Date:2018-03-12 10/16/2017 Willy [place] [id number] Insurance:ANTHEMPolic RettigDOB: [employer] y Number: [id number] [id number] Repository [address]Knt: (330) Date:5944-13-22AQ [phone] (HP) [id number] [place] [id number]: 10/16/2017 Secondary NOT GIVENUNK [place] Insurance:SELF PAY [facility] Number: Effective Repository Date:2017-03-20 10/04/2017 WILLY Cook Primary WILLY Cook Georgi [id number] Insurance:ANTHEMPolic RETTIGDOB: [facility] [employer] y Number: [id number], [place] [id number] Repository [address]Tce: (330) Date:8981-23-77VX [phone] () [id number] [place] [id number]: 10/04/2017 Secondary NOT GIVENUNK [place] Insurance:SELF PAY [facility] Number: Effective Repository Date:2017-10-04 09/11/2017 Willy Cook Primary Willy Cook [place] [id number] Insurance:ANTHEMPolic RettigDOB: [facility] y Number: [id number] [id number] Repository [address]Fwc: (330) Date:9150-53-23YU [phone] () [id number] [place] [id number]: 09/11/2017 Secondary NOT GIVENUNK [place] Insurance:SELF PAY [facility] Number: Effective Repository Date:2017-09-11 06/24/2017 Willy Cook Primary Willy Cook [place] [id number] Insurance:ANTHEMPolic RettigDOB: [facility] y Number: [id number] [id number] Repository [address]Apv: (330) Date:4519-42-92BL [phone] (HP) [address] [place] [id number]: 06/24/2017 Secondary NOT GIVENUNK [place] Insurance:SELF PAY [facility] Effective Repository Date:2017-06-24
== END ==
PROVIDERS: Family Provider Family Medicine; PCP Family Medicine; Referring Provider Family Medicine; Visit Provider Family Medicine
DX: Z01.818 Encounter for other preprocedural examination (principal); I25.10 Atherosclerotic heart disease of native coronary artery without angina pectoris
CPT/HCPCS: 36415; 71046; 80053; 85027

== ENCOUNTER 2018-03-21 05:49 | Day surgery (SDC) | payer BC, SELFPAY ==
[2017-10-04 15:31] VITALS: BMI 26.6
[2018-03-21] VITALS (7 sets, daily range): BP systolic 109–126; BP diastolic 77–87; PULSE 57–69; RESP 16; TEMP 36.4–36.9; O2SAT 93–100; BMI 25.2
[2018-03-21] MEDS: Metoprolol Tartrate 25 MG Tablet 12.5 MG PO (07:06)
[2018-03-21] MEDS: Lisinopril 5 MG Tablet PO (07:07)
--- NOTE | 2018-03-21 07:30 | RAD_ITS ---
STUDY: X-RAY RIGHT FOOT, 5TH TOE REASON FOR EXAM: Male, 62 years old. Arthroplasty 5th digit TECHNIQUE: 15 view(s) of the toe were obtained. Intraoperative fluoroscopy. The radiologist was not present during the procedure. Submitted for interpretation only. COMPARISON: None. FINDINGS: Images depict pin fixation between the proximal and distal phalanx of the 1st digit, the distal head of the proximal phalanx resected. Anatomic alignment achieved. RAD/Toe(s) Min 2 Views IMPRESSION: Anatomic alignment. Correlate operative report. Electronically Signed: Jamey Clement MD at 16:44 EST Tel , Service support ,
--- NOTE | 2018-03-21 07:30 | BON_PTH ---
PATIENT: DRU QUISPE LOC: [facility] [place] U#:[id number] AGE/SX: 62/M ROOM: RE03/21/[address]: Dr. Joo Hicks DPM : 1955 BED: DIS: 03/21/2018 SPEC #: [id number] RECD: 03/21/18 10:26 STATUS: VICENTE XIANG #: [id number] ANJALI: 03/21/18 07:[address]: Joo Hicks DEPT: SURGICAL PATHOLOGY RECD BY: Jamey Graham ENTERED: 03/21/18 13:23 SP TYPE: Bone OTHR DR: Dr. Tony Agosto MD Tissues: A - Bone of foot, NOS B - VERRUCA Procedures: Decalcification bone/plaque Surgery Specimen Level IV HEADER OPERATION: Arthroplasty fifth toe PRE-OP DIAGNOSIS: Right foot pain TISSUE SUBMITTED: A - Second bone from right fifth toe, B - Wart right fifth toe MICROSCOPIC DIAGNOSIS A. Second bone from right fifth toe, biopsy: Reactive and mild reparative change. No evidence of osteomyelitis. B. Skin lesion of right fifth toe, biopsy: Hyperkeratotic skin. See comment. AM:josé 03/28/18 COMMENT B. The specimen consists entirely of keratin and superficial epidermis only. The lesion may represent superficial portions of a verruca. Clinical correlation is suggested. MICROSCOPIC DESCRIPTION Slides are reviewed. GROSS DESCRIPTION A - Received in fixative is one container labeled with the patient's name and designated second bone right fifth toe. The specimen consists of a piece of bone measuring 1.7 x 1 x 0.7 cm. Also present in the container is a detached piece of bone measuring 0.1 cm in greatest dimension. The entire specimen is submitted in one cassette after decalcification. B - Received in fixative is one container labeled with the patient's name and designated wart right fifth toe. The specimen consists of a piece of cook-white skin measuring 0.7 x 0.5 x 0.2 cm. The entire specimen is submitted in one cassette. / SJ:josé 03/21/18 TC:5 CPT: 38618 x2, 89418
[2018-03-21] MEDS: Cefazolin 2 GM in 0.9% Normal Saline 100 ML IV (07:46)
[2018-03-21] MEDS: Bupivacaine 0.5% PF 10 ML VIAL (08:00)
--- NOTE | 2018-03-21 08:34 | RAD_ITS ---
STUDY: X-RAY - RIGHT FOOT CLINICAL: Male, 62 years old. Right 5th toe arthroplasty. Postop. TECHNIQUE: 3 view(s) of the foot. COMPARISON: None. FINDINGS: There has been resection of the head of the proximal phalanx 5th digit. Longitudinal pin fixation through the proximal distal phalanx. Excellent anatomic alignment. Remainder of the foot are unremarkable. RAD/Foot min 3 Views IMPRESSION: Surgical construct appears intact. Correlate with operative technique. Electronically Signed: Jamey Clement MD at 10:29 EST Tel , Service support ,
--- NOTE | 2018-03-21 08:36 | DCINST_ITS ---
Discharge Diet: Light diet - advance as tolerated Discharge Activity: May Not Drive Weight Bearing Status: Partial weight bearing - Weightbear on heel right foot with use of surgical shoe Keep extremity elevated above heart level: Right Leg - Keep right foot elevated for at least 50 minutes of every hour using pillows Call your doctor if your incision/area has: Continuous Slow Oozing, Sudden Increased Bleeding, Increased Pain/ Swelling, Foul Smelling Discharge Call your doctor if you observe: Fever of 101 or Higher, Shortness of breath, Chest pain, Increased palpitations (irregular heartbeat), Calf discomfort, Uncontrolled pain Cleanse incision/area with: Do not get Incision Wet, Keep Dressing Clean & Dry Allergies/Adverse Reactions: Allergies No Known Allergies Allergy (Verified 03/13/18 14:57) Medications to take at Discharge Aspirin [Aspirin EC] 81 mg PO DAILY 06/17/16 atorvastatin 40 mg tablet 40 mg PO DAILY #90 tab 03/06/17 nitroglycerin 0.4 mg sublingual tablet 0.4 mg SUBLINGUAL Q5M PRN 03/14/17 lisinopril 5 mg tablet 5 mg PO QDAY #90 tab 03/29/17 metoprolol tartrate 25 mg tablet 12.5 mg PO BID #90 tab 06/19/17 Acetaminophen/Codeine #3 [Tylenol#3] 1 - 2 tab PO Q6H PRN PRN #15 tab 03/21/18 The following prescriptions were given: Acetaminophen/Codeine #3 [Tylenol#3] 1 - 2 tab PO Q6H PRN PRN #15 tab PRN Reason: Pain Primary Care Physician: Santhosh Agosto MD [Primary Care Provider] - Test Results: Test results from this visit will be discussed in further detail at your follow- up appointment, if applicable. Please Follow Up With: Joo Hicks DPM When: within 1 week, sooner if needed
--- NOTE | 2018-03-21 08:38 | OP.PCM_ITS ---
Report of Operation Date of Procedure: 03/21/18 Pre-Operative Diagnosis: Hammer toe 5th digit right foot. Wart/Callus with ingrown toenail medial border right 5th toe Post-Operative Diagnosis: Same Surgery/Procedure Performed:: Arthroplasty 5th toe right foot. Curettage with phenol application of wart/callus right foot. Matricectomy with phenol and alcohol to the medial border right 5th toenail research scientist: yes - Dr. Jose Castorena Type of Anesthesia:: Local MAC Specimen's removed: Bone from right 5th toe sent to pathology. Wart callus tissue from right 5th toe sent to pathology Description of Procedure: Indications: This is a 62 year-old male who has had chronic right foot pain to the 5th toes. He has trouble with shoes and with activities. He has tried nonsu rgical care however his symptoms persist and are only getting worse. He was asking about surgical options. We discussed all of the options, and he elected to proceed with arthroplasty of the 5th toe w/ curettage and phenol application of wart/callus and P+A matricecomy medial border right 5th toe. This was discussed with him in great detail. We reviewed all the possible benefits, risks, goals and expectations. He expressed understanding and agreement. We also reviewed the typical postoperative and expected postoperative course. He expressed understanding and agreement and wanted to proceed forward with surgical intervention. All alternative options were discussed with him and all the possible benefits, risks of the alternative options were discussed with him as well in detail. He expressed understanding and agreement and again want to proceed for surgical intervention. The consent form was reviewed with him and he freely signed them. No guarantees were given or implied. Operative Procedure: The patient was brought back into the operating room and was placed onto the operative table in the supine position. He was carefully secured to the operating room table with safety belt around his waist. The patient did receive 2 g of intravenous cefazolin for antibiotic prophylaxis, the patient received anesthesia per the anesthesiologist. The skin w as cleansed with 70% Isopropyl alcohol and a total of 10mL of a 50/50 mixture of 1% Lidocaine plain and 0.5% Bupivacaine plain was given a a 5th ray block. A well- padded pneumatic tourniquet was applied around her right ankle. The right foot was scrubbed, prepped and draped in the usual aseptic fashion. Further attention was directed to the right 5th toe, which was contracted and hammered. There was a large prominence to the lateral aspect of the head of the proximal phalanx, there was a skin lesion to the distal medial toe consistent with a wart vs porokeratosis callus lesion, also the medial border of the 5th digit toenail was significantly incurvated. The right foot was elevated for 3 minutes and the right ankle pneumatic tourniquet was inflated to 250mmHg. Two oblique semi-elliptical converging skin incisions were made around the dorsal aspect of the proximal interphalangeal joint (PIPJ) of the 5th toe. The skin within the incisions was excised. The extensor digitorum longus tendon was visualized and incised transversely with a 15 blade. The dorsal PIPJ joint capsule was incised with a 15 blade. The extensor tendon was reflected off of the head of the proximal phalanx. The PIPJ was visulized, there was significant degenerative changes on the head of the proximal phalanx, the cartilage was completely worn away with erosions present. There was large exostosis to the distal lateral aspect of the head of the proximal phalanx. The head of the proximal phalanx was resected using a powered sagittal saw, and this was sent to pathology. The site was flushed out with copious amounts of normal saline so lution. A 0.045 inch kwire was placed through the phalanges of the toe holding the toe in rectus position. This was confirmed with intra operative fluoroscopy. The site was again flushed out with copious amounts of normal saline solution. The joint capsule and extensor digitorum longus tendon was reapproximated using 3-0 Vicryl, the skin was reapproximated using 4-0 Nylon. The kwire was trimmed outside of the toe at the distal aspect and was capped with a pin cap. Further attention was directed to the skin lesion right 5th toe and incurvated medial nail border on the 5th toe. The medial nail border was freed up and resected. Phenol was applied to the medial nail matrix foe 30 seconds x 3 applications. The skin lesion was consistent with a wart, and was curetteged out. This was sent to pathology for further evaluation. Phenol was applied to the base of the site for 30 seconds. The sites were flushed out with 70% Isopropyl alcohol. The right ankle tourniquet was deflated and there was immediate return of warmth and perfusion to the foot, including all toes. CFT < 2 seconds to all toes with normal temperature. Total tourniquet time was 26 minutes. A dressing was applied which consisted of Betadine soaked Adaptic, 4x4 gauze, kerlix and stefania bandage. The patient tolerated the above procedure well and anesthesia well with no complications. The patient was transported from the operative room to the recovery room with vital signs stable and in good condition. Post operative orders were placed, and post operative instructions were reviewed with the patient and his who was with him today (verbal and written). Limit weightbearing right forefoot, keep the dressing clean, dry and intact. Keep foot elevated for at least 50 minutes of every hour. Post operative prescriptions for Tylenol #3 for pain control. Patient to follow up in 1 week, sooner if needed. Also of note post operative xrays were obtained of the right foot in the recovery room, which were reviewed. These confirmed arthroplasty of the 5th toe with kwire intact, and toe in good alignment. Grafts/Implants Used: 1 x 0.045 inch kwire - Complications None
== END 2018-03-21 10:08 | disposition home or self-care (01) ==
LOC: SDC 05:49 → AC 05:50
PROVIDERS: Family Provider Family Medicine; PCP Family Medicine; Referring Provider Podiatrist; Visit Provider Podiatrist
PROC: (CPT 11750; principal; 2018-03-21 07:15)
PROC: (CPT 11750; 2018-03-21 07:15)
DX: M20.41 Other hammer toe(s) (acquired), right foot (principal); B07.9 Viral wart, unspecified; L60.0 Ingrowing nail; L84 Corns and callosities; G89.29 Other chronic pain; I25.10 Atherosclerotic heart disease of native coronary artery without angina pectoris; I10 Essential (primary) hypertension; J44.9 Chronic obstructive pulmonary disease, unspecified; E78.00 Pure hypercholesterolemia, unspecified; F17.200 Nicotine dependence, unspecified, uncomplicated; Z79.82 Long term (current) use of aspirin; Z79.899 Other long term (current) drug therapy; I25.2 Old myocardial infarction; Z95.5 Presence of coronary angioplasty implant and graft
CPT/HCPCS: 11750; 17110; 28285; 73630; 73660; 76000; 88304; 88305; 88311; J7120

== ENCOUNTER → 2019-01-09 05:43 | Outpatient (CLI) | payer BC, SELFPAY ==
[2019-01-05 12:55] VITALS: BMI 26.1
[2019-01-09 07:53] LABS: AST(SGOT) 18 U/L (15-37); Alanine Aminotransfer ALT/SGPT 28 U/L (16-61); Albumin, Serum 3.8 g/dL (3.2-5.0); Alkaline Phosphatase 139 U/L (45-117); Bilirubin, Direct 0.11 mg/dL (0.00-0.30); Cholesterol 159 mg/dL (200); Globulin 3.5 g/dL (2.2-4.2); High Density Lipoprotein 39 mg/dL; Protein, Total 7.3 g/dL (6.4-8.2); Triglycerides 164 mg/dL; Very Low Density Lipoprotein 33 mg/dL (5-40)
== END ==
PROVIDERS: Family Provider Family Medicine; PCP Family Medicine; Referring Provider Internal Medicine Cardiovascular Disease; Visit Provider Internal Medicine Cardiovascular Disease
DX: E78.5 Hyperlipidemia, unspecified (principal)
CPT/HCPCS: 36415; 80061; 80076

== ENCOUNTER → 2019-01-14 12:31 | Outpatient (CLI) | payer BC, SELFPAY ==
[2019-01-05 12:55] VITALS: BMI 26.1
--- NOTE | 2019-01-14 12:33 | RAD_ITS ---
STUDY: X-RAY - CERVICAL SPINE REASON FOR EXAM: Male, 63 years old. Neck pain TECHNIQUE: 5 view(s) of the cervical spine were obtained. COMPARISON: None FINDINGS: Normal anterior atlantoaxial articulation. Normal odontoid process. Normal cervical lordosis. There is multi-level endplate spondylosis. There is multi-level degenerative disc disease with multilevel disc space narrowing. There is multi-level osseous foraminal stenosis. 2 mm retrolisthesis of C4 on C5 and 2 mm retrolisthesis of C5 on C6. The soft tissue structures are unremarkable. RAD/Cerv Spine 4 or 5 Views IMPRESSION: Moderate degenerative disc disease lower cervical spine with retrolisthesis as described above. Electronically Signed: Jamey Madison MD at 12:57 EDT Tel , Service support ,
== END ==
LOC: MTRAD 12:33
PROVIDERS: Family Provider Family Medicine; PCP Family Medicine; Referring Provider Family Medicine; Visit Provider Family Medicine
DX: S46.819A Strain of other muscles, fascia and tendons at shoulder and upper arm level, unspecified arm, initial encounter (principal); X58.XXXA Exposure to other specified factors, initial encounter; Y93.9 Activity, unspecified; Y92.9 Unspecified place or not applicable; Y99.9 Unspecified external cause status
CPT/HCPCS: 72050

== ENCOUNTER 2019-02-25 11:00 | Outpatient (RCR) | payer BC, SELFPAY ==
[2019-01-05 12:55] VITALS: BMI 26.1
--- NOTE | 2019-02-03 11:49 | HP.PTEVAL ---
Patient's Visit Information DRU QUISPE is a 63 year old M referred to Physical Therapy by Santhosh Agosto MD with a diagnosis of CERVICAL DDD.. Date of Evaluation: 02/03/19 Physical Therapist: Aishwarya Lees PT, Cert MDT - Visit Plan Frequency: 2-3x /Week Duration: 4-6 Weeks Plan: CERVCIAL US AND STM. POSTURE CORRECTION/STRENGTHENING, INSTRUCTION IN APPROPRIATE BODY MECHANICS AND ACTIVITY MODIFICATIONS. CLEMENTINE UE ROM, STRETCHING AND STRENGTHENING. HEP INSTRUCTION. - Subjective Findings: Work/Leisure: TOOL CRIB ATTENDENT. INVOLVES BENDING, LIFTING AND TWISTING. Disability: NO. Present symptoms: LEFT EAR TO SHOULDER INTERNITTENT PAIN, NUMBNESS, TINGLING AND ACHING. Present since: ABOUT 4 MONTHS AGO. Pain Scale: Worst - 5/10Least - 0/10. Currently: 0/10. Commenced as a result of: NO APPARENT REASON. Symptoms at onset: LEFT SHOULDER. Worse: REACHING TO THE RIGHT, CERTAIN MVMTS, LIFTING AT WORK (UP TO ABOUT 60 LBS). Better: DOING NOTHING. Disturbed sleep: YES. Previous history/Previous treatment: LEFT SHOULDER PAIN A LOT OF YEARS AGO WITH PHYSICAL THERAPY. Dizziness: NO. Tinnitis: CHRONIC TNNITIS. Nausea: NO. Shortness of Breath: NO. Difficulty Swollowing: NO. Gait: NORMAL. Accidents: NO. Unexplained weight loss: NO. Imaging: NECK X-RAY DEC 2018: FINDINGS: Normal anterior atlantoaxial articulation. Normal odontoid process. Normal cervical lordosis. There is multi-level endplate spondylosis. There is multi-level degenerative disc disease with multilevel disc space. narrowing. There is multi-level osseous foraminal stenosis. 2 mm. retrolisthesis of C4 on C5 and 2 mm retrolisthesis of C5 on C6. The soft tissue structures are unremarkable. RAD/Cerv Spine 4 or 5 Views. IMPRESSION: Moderate degenerative disc disease lower cervical spine with retrolisthesis. as described above. PMH/Recent major surgery: ARTHRITIS IN FEET. SURGERY ON TOE LAST YEAR. HEART ATTACK ABOUT 6 YEARS AGO - ONE STENT. - Objective Sitting Posture/Standing Posture: POOR. VERY SLOUCHED DURING SUBJECTIVE. FH AND RS'S. Active Correction of posture: IMMEDIATELY BETTER - ABOLISHES SX'S. Other Observations: INDEP GAIT AND TRANSFERS. FOLLOWS ALL COMMANDS WELL. PLEASANT AND COOPERATIVE TO WORK WITH. Motor deficit: CLEMENTINE UE'S 5/5 WITH MMT'ING. RIGHT MUSIC INDUSTRY INTERNSHIP 90 LBS, LEFT 95 LBS (PT IS LEFT HAND DOMINANT). Sensory deficit: CLEMENTINE UE LIGHT TOUCH SENSATION INTACT AND SYMMETRICAL BUT DECREASED ALONG LEFT SIDE OF NECK. ROM deficit: CLEMENTINE UE'S WFL. Reflexes: 2/3 CLEMENTINE UE'S. Dural Signs: NEGATIVE CLEMENTINE UE'S. Cervical Mvmt Loss: Flex: NIL - PRODUCES LEFT NECK TINGLING. Pro: NIL. Ext: MOD TO LOGAN - PRODUCES LEFT NECK TINGLING TRAVELING TO SHOULDER AND REMAINS WORSE A RESULT. Ret: LOGAN - NE. RSB: MIN - LEFT NECK TIGHTNESS. LSB: MOD - NE. R Rot: MOD - PRODUCES LEFT NECK TINGLING. L Rot: MOD - NE. Postural strength: POOR. Palpation: PALPATION OF C567 REGION PRODUCES LEFT EAR AND SHOULDER INCREASED TINGLING. VERY TIGHT CLEMENTINE CERVICAL MUSCULATURE WITH MULTIIPLE TRIGGER POINTS. DISTRACTION - NE - Goals Goal 1:: DECREASE C/O LEFT EAR/NECK/SHOULDER SX'S. Goal Time Frame: 4-6 Weeks Goal 2:: IMPROVE REACHING, LIFTING, WORK, DRIVING AND SLEEP FUNCTION Goal Time Frame: 4-6 Weeks Goal 3:: INSTRUCT IN PROPHYLAXIS Goal Time Frame: 4-6 Weeks - Rehabilitation Potential Rehabilitation Potential: Fair - Anticipated Interventions Patient/Client Instruction: Educate patient on: Condition, Plan of Care, Risk Factors, Benefits of Fitness Program For the Purpose of:: To improve self management Therapeutic Exercise to Include: Strength training, Body mechanics, Postural training, Flexibilty training, Scapular Strength/Stabilization Comment: PLEASE INCLUDE: STRETCHING: SCALENES, UPPER TRAP, LEVATOR SCAPULAE, PEC LOGAN AND PEC MINOR. STRENGTHENING: DEEP NECK FLEXORS, MID TRAP, LOWER TRAP AND SERRATUS ANTERIOR. For the Purpose of:: To decrease pain, To increase ROM, To improve muscle performance and motor function, To increase tolerance to activity/condition/position, To improve ability of physical actions for home/community/work/leisure Manual Therapy Techniques to Include: Soft tissue mobilization For the Purpose of:: To decrease pain, To increase ROM, To improve nutrient delivery to tissue Cryotherapy (ice pack, ice massage): Yes Thermo therapy (hot pack): Yes Ultrasound (thermal/non thermal): Yes For the Purpose of:: To decrease pain, To decrease swelling/inflammation, To improve nutrient delivery to tissue Thank you for the opportunity to evaluate your patient. For Medicare and Medicare HMO plans, please review the plan of care and approve it. It will need to be FAXED BACK to us at [phone] for Medicare purposes. For Medicare only, by signing this I certify the plan of care. Please let me know if there are questions or concerns regarding this plan of care. Physician Signature: Date:
--- NOTE | 2019-02-25 12:30 | HP.PTDCSUM_ITS ---
HP - PT D/C Summary It has been my pleasure to treat DRU QUISPE under orders from Santhosh Agosto MD, for the diagnosis of CERVICAL DDD. for a total of 6 visit(s). Discharge Date: Please see the following information for a summary of their discharge status. - Subjective Subjective: IT FEELS A HELL OF A LOT BETTER. PATIENT REPORTS HE STILL GETS A LITTLE BIT OF PAIN WHEN HE LOOKS UP BUT THAT IS ABOUT IT. - Overall Improvement % Improvement: 80 - Objective Objective/Function: ALL GOALS MET. UPON EXAM TODAY: Cervical Mvmt Loss: Flex: NIL. Pro: NIL. Ext: MOD. Ret: MOD. RSB: MIN. LSB: MOD. R Rot: MIN. L Rot: MOD. PATIENT DENIES PROVOCATION OF SX'S TODAY WITH CERVICAL ROM TESTING. - Goals Goal 1:: DECREASE C/O LEFT EAR/NECK/SHOULDER SX'S. Goal Progress: Goal Met Goal 2:: IMPROVE REACHING, LIFTING, WORK, DRIVING AND SLEEP FUNCTION Goal Progress: Goal Met Goal 3:: INSTRUCT IN PROPHYLAXIS Goal Progress: Goal Met - Plan Plan: D/C. PATIENT IS AGREEABLE AND PLANS TO RESUME EX HERE AT [employer] IN APRIL 2019 - D/C Information If there are questions or concerns regarding this patient's physical therapy, please feel free to call me at [phone]. Thank you for the referral of this patient. Sincerely, Aishwarya Lees, PT, Cert MDT
== END 2019-02-25 19:00 | disposition home or self-care (01) ==
LOC: PT 11:00
PROVIDERS: Family Provider Family Medicine; PCP Family Medicine; Visit Provider Family Medicine
DX: M53.3 Sacrococcygeal disorders, not elsewhere classified (principal)
CPT/HCPCS: 97035; 97110; 97162; 97530

== ENCOUNTER → 2020-03-21 07:39 | Outpatient (CLI) | payer BC, SELFPAY ==
[2019-09-21 15:37] VITALS: BMI 26.2
[2020-03-21 08:26] LABS: Hematocrit 43.2 % (40-54); Hemoglobin 14.2 g/dL (13.0-16.5); Mean Corp Hgb Conc 32.9 g/dL (32-36); Mean Corpuscular Hgb 33.6 pg (27.0-32.0); Mean Corpuscular Volume 102.4 fL (80-94); Mean Platelet Vol. 11.3 fl (6.2-12.0); Platelet Count 164 K/mm3 (150-450); RBC Distribution Width CV 12.7 % (11.6-14.6); Red Blood Count 4.22 M/mm3 (4.6-6.2); White Blood Count 3.2 K/mm3 (4.4-11.0)
[2020-03-21 08:53] LABS: AST(SGOT) 15 U/L (15-37); Alanine Aminotransfer ALT/SGPT 35 U/L (16-61); Albumin, Serum 3.7 g/dL (3.2-5.0); Alkaline Phosphatase 132 U/L (45-117); Cholesterol 171 mg/dL (200); Globulin 3.9 g/dL (2.2-4.2); High Density Lipoprotein 43 mg/dL; Protein, Total 7.6 g/dL (6.4-8.2); Triglycerides 153 mg/dL; Very Low Density Lipoprotein 31 mg/dL (5-40)
[2020-03-21 09:22] LABS: Anion Gap 4 (5-15); BUN 12 mg/dL (7-18); BUN/Creat Ratio 9.1 RATIO (10-20); Calcium,Total 8.6 mg/dL (8.5-10.1); Chloride 105 mmol/L (98-107); Creatinine, Serum 1.32 mg/dL (0.70-1.30); EST Glomerular Filtration Rate 58 mL/min (>60); Est Glom Filt Rate - Afr Amer 70 mL/min (>60); Glucose 129 mg/dL (74-106); Potassium 3.8 mmol/L (3.5-5.1); Sodium Level 139 mmol/L (136-145)
== END ==
PROVIDERS: PCP Family Medicine; Referring Provider Internal Medicine Cardiovascular Disease; Visit Provider Internal Medicine Cardiovascular Disease
DX: I25.10 Atherosclerotic heart disease of native coronary artery without angina pectoris (principal); D61.818 Other pancytopenia; E78.5 Hyperlipidemia, unspecified; E78.00 Pure hypercholesterolemia, unspecified
CPT/HCPCS: 36415; 80048; 80061; 80076; 85027

== ENCOUNTER → 2021-02-21 05:57 | Outpatient (CLI) | payer BC, SELFPAY ==
[2021-02-21 06:41] LABS: Hematocrit 40.4 % (40-54); Hemoglobin 13.8 g/dL (13.0-16.5); Mean Corp Hgb Conc 34.2 g/dL (32-36); Mean Corpuscular Hgb 34.4 pg (27.0-32.0); Mean Corpuscular Volume 100.7 fL (80-94); Mean Platelet Vol. 11.5 fl (6.2-12.0); Platelet Count 142 K/mm3 (150-450); RBC Distribution Width SD 48.5 fl (35.1-43.9); Red Blood Count 4.01 M/mm3 (4.6-6.2); White Blood Count 2.7 K/mm3 (4.4-11.0)
[2021-02-21 07:12] LABS: AST(SGOT) 18 U/L (15-37); Alanine Aminotransfer ALT/SGPT 32 U/L (16-61); Albumin, Serum 3.5 g/dL (3.2-5.0); Alkaline Phosphatase 123 U/L (45-117); Bilirubin, Direct 0.12 mg/dL (0.00-0.30); Protein, Total 7.5 g/dL (6.4-8.2)
[2021-02-21 07:21] LABS: ALB/GLOB Ratio 0.9 RATIO (0.9-2.4); AST(SGOT) 18 U/L (15-37); Alanine Aminotransfer ALT/SGPT 32 U/L (16-61); Albumin, Serum 3.4 g/dL (3.2-5.0); Alkaline Phosphatase 121 U/L (45-117); Anion Gap 4 (5-15); BUN 12 mg/dL (7-18); BUN/Creat Ratio 9.8 RATIO (10-20); Calcium,Total 8.8 mg/dL (8.5-10.1); Chloride 105 mmol/L (98-107); Cholesterol 159 mg/dL (200); Creatinine, Serum 1.23 mg/dL (0.70-1.30); EST Glomerular Filtration Rate 63 mL/min (>60); Est Glom Filt Rate - Afr Amer 76 mL/min (>60); Globulin 3.9 g/dL (2.2-4.2); Glucose 95 mg/dL (74-106); High Density Lipoprotein 39 mg/dL; PSA,Total - Annual Screen 2.19 ng/mL (0.00-4.00); Potassium 3.9 mmol/L (3.5-5.1); Protein, Total 7.3 g/dL (6.4-8.2); Sodium Level 139 mmol/L (136-145); Triglycerides 153 mg/dL; Uric Acid 8.2 mg/dL (3.5-7.2); Very Low Density Lipoprotein 31 mg/dL (5-40)
[2021-02-21 08:37] LABS: Vitamin B12 373 pg/mL (211-911)
== END ==
PROVIDERS: PCP Family Medicine; Referring Provider Internal Medicine Cardiovascular Disease; Visit Provider Internal Medicine Cardiovascular Disease
DX: I25.10 Atherosclerotic heart disease of native coronary artery without angina pectoris (principal); D61.818 Other pancytopenia; E78.5 Hyperlipidemia, unspecified; M10.9 Gout, unspecified; Z12.5 Encounter for screening for malignant neoplasm of prostate
CPT/HCPCS: 36415; 80053; 80061; 80076; 82607; 84153; 84443; 84550; 85027; G0103

== ENCOUNTER → 2021-08-02 | Outpatient (CLI) | payer MEDICARE, SELFPAY ==
[2021-08-02 08:04] LABS: AST(SGOT) 16 U/L (15-37); Alanine Aminotransfer ALT/SGPT 33 U/L (16-61); Albumin, Serum 3.5 g/dL (3.2-5.0); Alkaline Phosphatase 133 U/L (45-117); Bilirubin, Direct 0.17 mg/dL (0.00-0.30); Cholesterol 154 mg/dL (200); High Density Lipoprotein 34 mg/dL; Protein, Total 7.5 g/dL (6.4-8.2); Triglycerides 118 mg/dL; Very Low Density Lipoprotein 24 mg/dL (5-40)
== END | disposition home or self-care (01) ==
LOC: LAB 05:53
PROVIDERS: PCP Family Medicine; Referring Provider Internal Medicine Cardiovascular Disease; Visit Provider Internal Medicine Cardiovascular Disease
DX: E78.00 Pure hypercholesterolemia, unspecified (principal); E78.5 Hyperlipidemia, unspecified
CPT/HCPCS: 36415; 80061; 80076

== ENCOUNTER → 2021-08-07 | Outpatient (CLI) | payer MEDICARE, SELFPAY ==
--- NOTE | 2021-08-07 09:17 | RAD_ITS ---
STUDY: X-RAY - LEFT ELBOW REASON FOR EXAM: Male, 66 years old. Elbow pain. TECHNIQUE: 3 view(s) of the elbow. COMPARISON: None. FINDINGS: Large olecranon spur. Mild arthrosis of the radiocapitellar and ulnotrochlear articulations. The soft tissue structures are unremarkable. RAD/Elbow min 3 Views IMPRESSION: Large olecranon spur with mild arthrosis of the elbow joint. No acute abnormality or erosive changes. Electronically Signed: Bebo Solano MD at 9:59 EDT ,
== END | disposition home or self-care (01) ==
PROVIDERS: PCP Family Medicine; Referring Provider Family Medicine; Visit Provider Family Medicine
DX: M25.522 Pain in left elbow (principal)
CPT/HCPCS: 73080

== ENCOUNTER → 2021-08-15 | Outpatient (CLI) | payer MEDICARE, SELFPAY ==
--- NOTE | 2021-08-15 19:53 | STRESSREP ---
Stress Test Report Date: 08-15-2021 Procedure: Exercise tolerance test/imaging study Indications: CAD; status post TX; status post PTCA/SHAMIKA TX: Ischemic mediated cardiomyopathy; syncope Consent: Per the patient Procedure: The patient exercised on a Teddy protocol for 9 minutes and 53 seconds completing Stage III and 53 seconds of Stage IV achieving a peak heart rate of 184 bpm (118% predicted maximal heart rate) with a peak blood pressure 190/80 mmHg and a peak MET capacity of 12 normal sinus rhythm METs. The baseline ECG demonstrated normal sinus rhythm. The peak exercise ECG demonstrated somatic/motion artifact with no obvious ECG changes. There was an isolated PAC during exercise. The functional capacity was considered good. There was no complaint of chest discomfort during exercise or recovery. The examination was discontinued secondary to dyspnea. Impression: 1. Technically adequate (percent predicted maximal heart rate greater than 85%) exercise tolerance test 2. Peak exercise ECG with somatic/motion artifact with no obvious ECG changes 3. There was an isolated PAC during exercise 4. Nuclear images pending Myocardial perfusion imaging study: Technique: The patient was injected with 14.7 mCi of technetium 99m Cardiolite and subsequently rest SPECT Cardiolite nuclear imaging was obtained in the horizontal long, vertical long, and short axis views. The patient exercised on a Teddy protocol for 9 minutes and 53 seconds completing Stage III and 53 seconds of Stage IV achieving a peak heart rate of 184 bpm (118% predicted maximal heart rate) with a peak blood pressure 190/80 mmHg and a peak MET capacity of 12 normal sinus rhythm METs. The patient was injected with 44.7 mCi of technetium 99m Cardiolite and subsequently stress SPECT Cardiolite nuclear imaging was obtained in the horizontal long, vertical long, and short axis views. A gated Cardiolite study at peak stress was obtained. Interpretation: Rest and stress SPECT Cardiolite nuclear imaging status post realignment, normalization, and attenuation correction, demonstrates the appearance of relative uniform tracer uptake and myocardial perfusion appearing within normal limits. There is end systolic thickening and brightening. The gated Cardiolite study demonstrates myocardial thickening and inward wall motion. The reported LVEF is 59%. Impression: 1. Rest and stress SPECT Cardiolite nuclear imaging demonstrate relative uniform tracer uptake and myocardial perfusion appearing within normal limits. 2. The gated Cardiolite study reports an LVEF of 59%. This note was generated with [employer] software. It may contain incorrect words, spelling, and punctuation that were not noted in checking the note before signing.
== END | disposition home or self-care (01) ==
PROVIDERS: PCP Family Medicine; Referring Provider Nurse Practitioner Family; Visit Provider Nurse Practitioner Family
DX: I25.10 Atherosclerotic heart disease of native coronary artery without angina pectoris (principal); I25.5 Ischemic cardiomyopathy; E78.5 Hyperlipidemia, unspecified; I25.2 Old myocardial infarction; Z95.5 Presence of coronary angioplasty implant and graft
CPT/HCPCS: 78452; 93017; A9500; A4216

== ENCOUNTER → 2021-10-12 | Outpatient (CLI) | payer MEDICARE, SELFPAY ==
--- NOTE | 2021-10-12 18:39 | CT_ITS ---
INDICATION: iliac artery aneurysm right EXAMINATION: CTA Abdomen and Pelvis W/ Contrast Injection (and W/O Contrast Images if performed) TECHNIQUE: Helically acquired images were obtained of the abdomen and pelvis following IV contrast. CT angiogram protocol utilized, with 2-D and 3-D reconstructions. A radiation dose optimization technique was used for this scan. IV Contrast dosage and agent: 100 mL Isovue-370 Oral contrast: None. COMPARISON: None received. FINDINGS: LOWER CHEST: Slightly hyperexpanded lungs with minimal bibasilar linear scarring versus atelectasis. Heart size within normal limits. Coronary arterial calcifications noted. LIVER: Homogeneous. No concerning lesion. GALLBLADDER AND BILIARY TREE: No calcified gallstones identified. No gallbladder wall edema demonstrated. No significant biliary ductal dilation. PANCREAS: No discrete mass or peripancreatic edema. SPLEEN: Normal size without focal cystic or solid mass. ADRENAL GLANDS: Unremarkable. KIDNEYS AND URETERS: Normal renal size and position. No hydronephrosis. No concerning lesion. PERITONEUM: No peritoneal free air or significant free fluid. No other fluid collection. RETROPERITONEUM: No retroperitoneal mass or pathologic fluid collection. BOWEL: No evidence of acute appendicitis. No abnormal stomach or bowel distension. Mild distal colonic diverticulosis. No focal inflammatory change. LYMPH NODES: No enlarged mesenteric or retroperitoneal lymph nodes. VESSELS: Moderate atherosclerotic plaque with no abdominal aortic aneurysm or dissection. Aortic side branch vessels are patent with no significant stenosis. Patent celiac artery, superior mesenteric artery, bilateral renal arteries, inferior mesenteric artery, bilateral iliac arteries and imaged proximal femoral arteries. Aneurysmal dilatation of right common iliac artery extending to the level of bifurcation, measuring up to 2.6 cm diameter. Mild aneurysmal dilatation left common iliac artery measuring 1.6 cm diameter. No aneurysm rupture or leakage. URINARY BLADDER: Unremarkable as visualized. REPRODUCTIVE ORGANS: No pelvic masses. ABDOMINAL WALL: Small umbilical and inguinal fat hernias. BONES: Mild skeletal degenerative changes. CT/CT ANGIO ABD&PEL W/O&W/DYE IMPRESSION: 1. Aneurysmal dilatation bilateral common iliac arteries, right greater than left. 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 2. Mild distal colonic diverticulosis. 3. Mild COPD. Electronically Signed: Scott Duran MD at 0:03 EDT ,
[2021-10-12 19:06] LABS: CREATININE FINGERSTICK 1.1 mg/dL (0.70-1.30); EGFR FINGERSTICK > 60.0000 mL/min (>60)
== END | disposition home or self-care (01) ==
LOC: CT 18:36
PROVIDERS: PCP Family Medicine; Visit Provider Family Medicine
DX: Z01.812 Encounter for preprocedural laboratory examination (principal); I72.3 Aneurysm of iliac artery
CPT/HCPCS: 74174; Q9967

== ENCOUNTER → 2021-11-08 | Outpatient (CLI) | payer MEDICARE, SELFPAY ==
[2021-11-08 18:28] LABS: CRYSTALS, BODY FLUID MONOSODIUM URATE; Source- Body Fluid SYNOVIAL
[2021-11-09 13:26] LABS: Pathologist Review Reviewed
== END | disposition home or self-care (01) ==
PROVIDERS: PCP Family Medicine; Referring Provider Podiatrist; Visit Provider Podiatrist
DX: M10.9 Gout, unspecified (principal)
CPT/HCPCS: 87070; 87205; 89060

== ENCOUNTER → 2021-11-13 | Outpatient (CLI) | payer MEDICARE, SELFPAY ==
[2021-11-13 12:02] LABS: Absolute Lymphocyte Count 1.38 X10^3/uL (0.83-4.51); Basophil# 0.01 X10^3/uL; Basophil% 0.4 % (0-1); Eosinophil# 0.02 X10^3/uL; Eosinophils% 0.7 % (0-5); Hematocrit 37.6 % (40-54); Hemoglobin 12.4 g/dL (13.0-16.5); Lymphocyte # 1.38 X10^3/ul (0.83-4.51); Lymphocyte % 51.5 % (19-41); Mean Corpuscular Hgb 34.3 pg (27.0-32.0); Mean Corpuscular Volume 104.2 fL (80-94); Mean Platelet Vol. 11.2 fl (6.2-12.0); Monocyte% 11.2 % (0-10); NRBC Flagged by Analyzer 0 % (0-5); Neutrophil # 0.96 X10^3/uL (2.7-7.7); Neutrophil % 35.8 % (47-70); POSITIVE DIFFERENTIAL YES; Platelet Count 164 K/mm3 (150-450); RBC Distribution Width CV 12.8 % (11.6-14.6); Red Blood Count 3.61 M/mm3 (4.6-6.2); White Blood Count 2.7 K/mm3 (4.4-11.0)
[2021-11-13 12:05] LABS: Differential Indicated SCAN CRITERIA MET
[2021-11-13 12:44] LABS: ALB/GLOB Ratio 0.9 RATIO (0.9-2.4); AST(SGOT) 12 U/L (15-37); Alanine Aminotransfer ALT/SGPT 22 U/L (16-61); Albumin, Serum 3.3 g/dL (3.2-5.0); Alkaline Phosphatase 107 U/L (45-117); Anion Gap 5 (5-15); BUN 8 mg/dL (7-18); BUN/Creat Ratio 6.5 RATIO (10-20); Calcium,Total 8.7 mg/dL (8.5-10.1); Chloride 107 mmol/L (98-107); Creatinine, Serum 1.24 mg/dL (0.70-1.30); EST Glomerular Filtration Rate 62 mL/min (>60); Est Glom Filt Rate - Afr Amer 75 mL/min (>60); Globulin 3.5 g/dL (2.2-4.2); Glucose 86 mg/dL (74-106); Potassium 3.7 mmol/L (3.5-5.1); Protein, Total 6.8 g/dL (6.4-8.2); Sodium Level 141 mmol/L (136-145); Uric Acid 6.5 mg/dL (3.5-7.2)
== END | disposition home or self-care (01) ==
LOC: MFPLAB 10:18
PROVIDERS: PCP Family Medicine; Referring Provider Family Medicine; Visit Provider Podiatrist
DX: M10.9 Gout, unspecified (principal)
CPT/HCPCS: 36415; 80053; 84550; 85025

== ENCOUNTER → 2022-02-09 | Outpatient (CLI) | payer MEDICARE, SELFPAY ==
[2022-02-09 09:58] LABS: Absolute Lymphocyte Count 1.15 X10^3/uL (0.83-4.51); Absolute Neutrophil Count 0.8 X10^3/uL (2.0-7.7); Basophil# 0.01 X10^3/uL; Basophil% 0.4 % (0-1); Eosinophil# 0.05 X10^3/uL; Eosinophils% 2.2 % (0-5); Hemoglobin 12.3 g/dL (13.0-16.5); Lymphocyte # 1.15 X10^3/ul (0.83-4.51); Lymphocyte % 50.2 % (19-41); Mean Corp Hgb Conc 32.4 g/dL (32-36); Mean Corpuscular Hgb 34.2 pg (27.0-32.0); Mean Corpuscular Volume 105.6 fL (80-94); Mean Platelet Vol. 11.5 fl (6.2-12.0); Monocyte# 0.28 X10^3/uL; Monocyte% 12.2 % (0-10); NRBC Flagged by Analyzer 0 % (0-5); Neutrophil # 0.79 X10^3/uL (2.7-7.7); Neutrophil % 34.6 % (47-70); POSITIVE DIFFERENTIAL YES; Platelet Count 112 K/mm3 (150-450); RBC Distribution Width CV 13.2 % (11.6-14.6); RBC Distribution Width SD 51.7 fl (35.1-43.9); White Blood Count 2.3 K/mm3 (4.4-11.0)
[2022-02-09 10:14] LABS: ALB/GLOB Ratio 1.1 RATIO (0.9-2.4); AST(SGOT) 16 U/L (15-37); Alanine Aminotransfer ALT/SGPT 24 U/L (16-61); Albumin, Serum 3.6 g/dL (3.2-5.0); Alkaline Phosphatase 121 U/L (45-117); Anion Gap 6 (5-15); BUN 8 mg/dL (7-18); BUN/Creat Ratio 6.5 RATIO (10-20); Bilirubin, Direct 0.13 mg/dL (0.00-0.30); Calcium,Total 8.6 mg/dL (8.5-10.1); Chloride 107 mmol/L (98-107); Cholesterol 155 mg/dL (200); Creatinine, Serum 1.23 mg/dL (0.70-1.30); EST Glomerular Filtration Rate 63 mL/min (>60); Est Glom Filt Rate - Afr Amer 76 mL/min (>60); Globulin 3.4 g/dL (2.2-4.2); Glucose 112 mg/dL (74-106); High Density Lipoprotein 40 mg/dL; Potassium 3.4 mmol/L (3.5-5.1); Sodium Level 141 mmol/L (136-145); Triglycerides 125 mg/dL; Uric Acid 7.8 mg/dL (3.5-7.2); Very Low Density Lipoprotein 25 mg/dL (5-40)
[2022-02-09 10:17] LABS: Differential Indicated SCAN CRITERIA MET
== END | disposition home or self-care (01) ==
LOC: MFPLAB 08:17
PROVIDERS: PCP Family Medicine; Referring Provider Family Medicine; Visit Provider Family Medicine
DX: D61.818 Other pancytopenia (principal); M10.9 Gout, unspecified; I10 Essential (primary) hypertension
CPT/HCPCS: 36415; 80053; 80061; 82248; 84550; 85025

== ENCOUNTER → 2022-02-21 | Outpatient (CLI) | payer MEDICARE, SELFPAY ==
--- NOTE | 2022-02-21 06:49 | CT_ITS ---
EXAM: CT CHEST, LUNG CANCER SCREENING WITHOUT INTRAVENOUS CONTRAST CLINICAL INDICATION: COPD TECHNIQUE: Helically acquired images were obtained of the chest without intravenous contrast using low dose (LDCT) lung cancer screening protocol. This CT exam was performed using one or more of the following dose reduction techniques: automated exposure control, adjustment of the mA and/or kV according to patient size, and/or use of iterative reconstruction technique. This report was created using [employer] report generation technology. COMPARISON: None. FINDINGS: LUNGS AND PLEURAL SPACES: 3 mm granuloma noted within the right middle lobe on image 150 of sequence 2. The lungs are otherwise clear. Mild centrilobular and paraseptal emphysematous changes of both lungs. No mass. No pleural effusion or thickening. No pneumothorax. HEART: Normal heart size. Moderate coronary artery calcification. No pericardial effusion. MEDIASTINUM: Normal. No mediastinal or hilar adenopathy. Esophagus is unremarkable. No hiatal hernia. THYROID: Normal. No thyroid lesions. BONES/JOINTS: Normal. No suspicious lytic or blastic abnormality. VASCULATURE: Normal. Thoracic aorta is non-dilated. LYMPH NODES: Normal. No enlarged lymph nodes. CT/Low Dose CT Lung Screening IMPRESSION: 1. No evidence of lung mass or suspicious pulmonary nodule. ACR Lung CT Screening Reporting T Data System (Lung-RADS) score: 1 - Recommend continued annual screening with low-dose CT (LDCT) in 12 months. 2. COPD. Electronically Signed: Rell Lennon MD at 7:34 EST ,
== END | disposition home or self-care (01) ==
PROVIDERS: PCP Family Medicine; Referring Provider Family Medicine; Visit Provider Family Medicine
DX: J44.9 Chronic obstructive pulmonary disease, unspecified (principal); Z87.891 Personal history of nicotine dependence
CPT/HCPCS: 71271

== ENCOUNTER → 2023-02-12 | Outpatient (CLI) | payer MEDICARE, SELFPAY ==
[2023-02-12 12:44] LABS: Absolute Lymphocyte Count 1.16 X10^3/uL (0.83-4.51); Absolute Neutrophil Count 0.8 X10^3/uL (2.0-7.7); Basophil# 0.02 X10^3/uL; Basophil% 0.8 % (0-1); Eosinophil# 0.04 X10^3/uL; Eosinophils% 1.6 % (0-5); Hematocrit 39.2 % (40-54); Hemoglobin 12.8 g/dL (13.0-16.5); Lymphocyte # 1.16 X10^3/ul (0.83-4.51); Lymphocyte % 47.2 % (19-41); Mean Corp Hgb Conc 32.7 g/dL (32-36); Mean Corpuscular Hgb 34.7 pg (27.0-32.0); Mean Corpuscular Volume 106.2 fL (80-94); Monocyte# 0.43 X10^3/uL; Monocyte% 17.5 % (0-10); NRBC Flagged by Analyzer 0 % (0-5); Neutrophil % 32.5 % (47-70); POSITIVE DIFFERENTIAL YES; Platelet Count 137 K/mm3 (150-450); RBC Distribution Width CV 13.4 % (11.6-14.6); RBC Distribution Width SD 52.6 fl (35.1-43.9); Red Blood Count 3.69 M/mm3 (4.6-6.2); White Blood Count 2.5 K/mm3 (4.4-11.0)
[2023-02-12 12:45] LABS: Differential Indicated SCAN CRITERIA MET
[2023-02-12 13:04] LABS: Differential Comment SCANNED
[2023-02-12 13:21] LABS: AST(SGOT) 16 U/L (15-37); Alanine Aminotransfer ALT/SGPT 24 U/L (16-61); Albumin, Serum 3.6 g/dL (3.2-5.0); Alkaline Phosphatase 110 U/L (45-117); Anion Gap 5 (5-15); BUN 15 mg/dL (7-18); BUN/Creat Ratio 11.4 RATIO (10-20); Bilirubin, Direct 0.13 mg/dL (0.00-0.30); Calcium,Total 8.2 mg/dL (8.5-10.1); Chloride 104 mmol/L (98-107); Cholesterol 181 mg/dL (200); Creatinine, Serum 1.32 mg/dL (0.70-1.30); EST Glomerular Filtration Rate 58 mL/min (>60); Est Glom Filt Rate - Afr Amer 70 mL/min (>60); Globulin 3.7 g/dL (2.2-4.2); Glucose 90 mg/dL (74-106); High Density Lipoprotein 42 mg/dL; PSA,Total - Annual Screen 2.65 ng/mL (0.00-4.00); Protein, Total 7.3 g/dL (6.4-8.2); Sodium Level 136 mmol/L (136-145); Triglycerides 223 mg/dL; Uric Acid 7.1 mg/dL (3.5-7.2); Very Low Density Lipoprotein 45 mg/dL (5-40)
== END | disposition home or self-care (01) ==
LOC: MFPLAB 10:56
PROVIDERS: PCP Family Medicine; Visit Provider Family Medicine
DX: I10 Essential (primary) hypertension (principal); D61.818 Other pancytopenia; N40.0 Benign prostatic hyperplasia without lower urinary tract symptoms; I25.10 Atherosclerotic heart disease of native coronary artery without angina pectoris; M10.9 Gout, unspecified
CPT/HCPCS: 36415; 80048; 80061; 80076; 84153; 84550; 85025; G0103

== ENCOUNTER → 2023-02-27 | Outpatient (CLI) | payer MEDICARE, SELFPAY ==
--- NOTE | 2023-02-27 07:40 | CT_ITS ---
STUDY: LOW DOSE CT LUNG CANCER SCREENING REASON FOR EXAM: Male, 67 years old. Patient smoked 1 pack per day for 35 years. RADIATION DOSAGE (If Supplied By Facility): CTDIvol = ( 3.02 ) mGy, DLP = ( 119.65 ) mGycm TECHNIQUE: No contrast was administered. Low dose technique was utilized (average mAS-38 and kVp 120). 1.25 mm axial source images with a slice interval of 1.25-mm were reconstructed in lung windows. 2.5 mm axial source images with a slice interval of 2.5-mm were reconstructed in lung windows. 5.0 mm axial source images with a slice interval of 5.0-mm were reconstructed in soft tissue windows. COMPARISON: Comparison is made with prior examination dated February 21, 2022. NODULES: Stable 3 mm granuloma in the lateral aspect of the right middle lobe. Emphysema: Stable scarring at the lung apices worse on the right apex. Bullous formation in the medial aspect of the right upper lobe. This is unchanged. Endobronchial lesion: None Aorta: Atherosclerotic plaque formation of the aortic arch. CORONARY ARTERIES: Coronary artery calcification is seen. Heart: Unremarkable Pulmonary artery: Unremarkable Mediastinal nodes: Small mediastinal lymph nodes. Other chest and abdominal findings: CT/Low Dose CT Lung Screening IMPRESSION: Lung-RADS category 2 - Continue annual screening with LDCT in 12 months. IMPORTANT NOTES FOR USE: ACR Lung-RADS Version 1.1 Assessment Categories Release Date: 2018 Category: Coded 0-4 bases on nodule(s) with highest degree of suspicion. Negative screen is defined as categories 1 and 2; a positive screen is defined as categories 3 and 4. Category 3 and 4A nodules that are unchanged on interval CT should be coded as category 2, and individuals returned to screening in 12 months. Category 4X: Category 3 or 4 nodules with additional imaging findings that increase the suspicion of lung cancer, such as spiculation, GGN that doubles in size in 1 year, enlarged lymph notes, etc. Category Modifiers: S (significant finding unrelated to lung cancer) Electronically Signed: Julian Devlin MD at 15:11 EST ,
== END | disposition home or self-care (01) ==
PROVIDERS: PCP Family Medicine; Referring Provider Family Medicine; Visit Provider Family Medicine
DX: F17.210 Nicotine dependence, cigarettes, uncomplicated (principal)
CPT/HCPCS: 71271

== ENCOUNTER → 2023-06-11 | Outpatient (CLI) | payer MEDICARE, SELFPAY ==
--- OUTSIDE RECORDS SUMMARY | 2023-06-11 07:56 | XMS RPT_ITS | CCD ---
Author Name Unknown Address [address] [place] [address] [facility] [place] Care Team Providers Care After School Program Teacher Name Role Phone Og Cartagena Unavailable Unavailable Og Cartagena Unavailable Unavailable Merjaneh, Zahi Unavailable Unavailable MORWAY, LOLI F Unavailable Unavailable MASCI, JENNIFER A Unavailable Unavailable MASCI, JENNIFER A Unavailable Unavailable MASCI, JENNIFER A Unavailable Unavailable MASCI, JENNIFER A Unavailable Unavailable MASCI, JENNIFER A Unavailable Unavailable Problems Active Problems Problem Classification Problem Date Documented Date Episodic/Chronic Deficiency and other anemia (1 source) Other pancytopenia; Translations: [Other pancytopenia] Onset: 12-19-2016 Chronic Substance-related disorders (1 source) Nicotine dependence, unspecified, uncomplicated; Translations: [Nicotine dependence, unspecified, uncomplicated] Onset: 12-19-2016 Chronic Unclassified (1 source) Unsp fracture of facial bones, init for clos fx / S02.92XA(ICD-10) Onset: 03-11-2017 Unclassified (1 source) Abrasion of left elbow, initial encounter / S50.312A(ICD-10) Onset: 03-11-2017 Unclassified (1 source) Contusion of left eyelid and periocular area, init encntr / S00.12XA(ICD-10) Onset: 03-11-2017 Unclassified (1 source) Other fall on same level, initial encounter / W18.39XA(ICD-10) Onset: 03-11-2017 Unclassified (1 source) Encounter for immunization / Z23(ICD-10) Onset: 03-11-2017 Unclassified (1 source) Alcohol abuse, uncomplicated / F10.10(ICD-10) Onset: 03-11-2017 Unclassified (1 source) Other specified injuries of head, initial encounter / S09.8XXA(ICD-10) Onset: 03-11-2017 Past or Other Problems Problem Classification Problem Date Documented Da te Episodic/Chronic Other gastrointestinal disorders (1 source) Splenomegaly, not elsewhere classified; Translations: [Splenomegaly, not elsewhere classified] Onset: 12-19-2016 Episodic Other lower respiratory disease (1 source) Cough; Translations: [Cough] Onset: 12-19-2016 Episodic Other nutritional; endocrine; and metabolic disorders (1 source) Abnormal weight loss; Translations: [Abnormal weight loss] Onset: 12-19-2016 Episodic Results Test Name Value Interpretation Reference Range Facil ity Encounters Encounter Date Encounter Type Care Provider Facility Start: 03-11-2017 End: 03-12-2017 Evaluation and management of inpatient Og Cartagena Facility:[facility] Start: 03-10-2017 End: 03-11-2017 Ambulatory LOLI BASS Facility:[facility] [place] Start: 03-10-2017 Emergency dept visit high severity&threat funcj LOLI BASS [facility] Start: 12-26-2016 End: 12-31-2016 Ambulatory JENNIFER JARAMILLO [facility] Start: 12-19-2016 End: 12-21-2016 Ambulatory JENNIFER Carrie CLINT [facility] Payers Date Payer Category Payer Policy ID Unknown [id number] Summary Purpose Family History No Family History Records FoundNo Family History Records FoundNo Family History Records Found Advance Directives No Advanced Directives Records FoundNo Advanced Directives Records FoundNo Advanced Directives Records Found Additional Source Comments (unrecognized sect ion and content) No Status Records FoundNo Status Records FoundNo Status Records Found INFORMATION SOURCE (unrecogn ized section and content) DATE CREATED AUTHOR AUTHOR'S ORGANIZ ATION 09/24/2017 [facility] DATE CREATED AUTHOR AUTHOR'S ORGANIZ ATION 09/25/2017 [facility] FOR RECORDS PERTAINING TO PATIENTS WHO ARE OR HAVE BEEN ENROLLED IN A CHEMICAL DEPENDENCY/SUBSTANCEABUSE PROGRAM, SOME INFORMATION MAY BE OMITTED. This clinical summary was aggregated from multiple sources. Caution should be exercised in using it in the provision of clinical care. This summary normalizes information from multiple sources, and as a consequence, information in this document may materially change the coding, format and clinical context of patient data. In addition, data may be omitted in some cases. CLINICAL DECISIONS SHOULD BE BASED ON THE PRIMARY CLINICAL RECORDS. [facility] [employer] provides no warranty or guarantee of the accuracy or completeness of information in this document.
[2023-06-11 08:42] LABS: Anion Gap 2 (5-15); BUN 11 mg/dL (7-18); BUN/Creat Ratio 8.3 RATIO (10-20); Calcium,Total 8.9 mg/dL (8.5-10.1); Chloride 111 mmol/L (98-107); Creatinine, Serum 1.33 mg/dL (0.70-1.30); EST Glomerular Filtration Rate 57 mL/min (>60); Est Glom Filt Rate - Afr Amer 69 mL/min (>60); Glucose 105 mg/dL (74-106); Potassium 3.8 mmol/L (3.5-5.1); Sodium Level 142 mmol/L (136-145)
== END | disposition home or self-care (01) ==
LOC: LAB 07:36
PROVIDERS: PCP Family Medicine; Referring Provider Internal Medicine Cardiovascular Disease; Visit Provider Internal Medicine Cardiovascular Disease
DX: I25.5 Ischemic cardiomyopathy (principal)
CPT/HCPCS: 36415; 80048

== ENCOUNTER → 2024-03-16 | Outpatient (CLI) | payer MEDICARE, SELFPAY ==
--- NOTE | 2024-03-16 07:24 | CT_ITS ---
STUDY: LOW DOSE CT LUNG CANCER SCREENING REASON FOR EXAM: Male, 68 years old. Current smoker, 50 yrs x 1/2 ppd, copd RADIATION DOSAGE (If Supplied By Facility): CTDIvol = ( 3.02 ) mGy, DLP = ( 115.13 ) mGycm TECHNIQUE: No contrast was administered. Low dose technique was utilized (average mAS-38 and kVp 120). 1.25 mm axial source images with a slice interval of 1.25-mm were reconstructed in lung windows. 2.5 mm axial source images with a slice interval of 2.5-mm were reconstructed in lung windows. 5.0 mm axial source images with a slice interval of 5.0-mm were reconstructed in soft tissue windows. COMPARISON: Comparison is made with prior study dated February 27, 2023. NODULES: There is a new 1.5 cm x 1.1 cm spiculated nodule in the anterior medial left upper lobe as seen on axial image #119 and coronal image #103. Correlation with a PET scan recommended for further evaluation. Is also evidence of a new 6.5 mm nodule seen in the left upper lobe medially. Emphysema: Stable scarring at the lung apices more prominent on the right side. Hyperinflation. Stable emphysematous changes. Endobronchial lesion: None Aorta: Atherosclerotic plaque formation. CORONARY ARTERIES: Coronary artery calcification is seen. Heart: Unremarkable Pulmonary artery: Unremarkable Mediastinal nodes: Small mediastinal lymph nodes. Other chest and abdominal findings: CT/Low Dose CT Lung Screening IMPRESSION: Lung-RADS category 4B - Chest CT with or without contrast, PET/CT and/or tissue sampling can be obtained depending on the probability of malignancy and comorbidities. IMPORTANT NOTES FOR USE: ACR Lung-RADS Version 1.1 Assessment Categories Release Date: 2018 Category: Coded 0-4 bases on nodule(s) with highest degree of suspicion. Negative screen is defined as categories 1 and 2; a positive screen is defined as categories 3 and 4. Category 3 and 4A nodules that are unchanged on interval CT should be coded as category 2, and individuals returned to screening in 12 months. Category 4X: Category 3 or 4 nodules with additional imaging findings that increase the suspicion of lung cancer, such as spiculation, GGN that doubles in size in 1 year, enlarged lymph notes, etc. Category Modifiers: S (significant finding unrelated to lung cancer) Electronically Signed: Julian Devlin MD at 14:13 EST Reading Location ID and State: [facility] / [place] , Service support ,
--- NOTE | 2024-03-16 07:24 | CT_ITS ---
STUDY: CTA ABDOMEN AND PELVIS WITH CONTRAST REASON FOR EXAM: Male, 68 years old. F/u iliac aneurysm RADIATION DOSAGE (If Supplied By Facility): CTDIvol = ( 22.77 ) mGy, DLP = ( 959.99 ) mGycm TECHNIQUE: Transaxial images were obtained from the dome of the diaphragm to the symphysis pubis without oral contrast. IV 100mL Isovue-370 was administered. Sagittal and coronal images were reconstructed. 3-D images were reconstructed. Individualized dose optimization techniques were used for this CT. COMPARISON: Comparison is made with prior study dated October 12, 2021. FINDINGS: Stable mild linear scarring at the lung bases. The visualized portions of the heart are within normal limits. Normal liver. Normal gallbladder and extrahepatic biliary system. Normal spleen. Normal pancreas. Normal bilateral adrenal glands. Normal right kidney. Normal left kidney. Normal visualized stomach. Normal small intestine. There are scattered colonic diverticula consistent with diverticulosis. The appendix is visualized and appears normal. There is diffuse atherosclerotic calcification of the abdominal aorta and its major visceral branches, without a demonstrated aneurysm. Once again, there is aneurysmal dilatation of the right common iliac artery with further plaque formation and ulceration. This measures 2.9 cm x 2.1 cm. This has increased slightly in size as compared to prior study. Stable small left common iliac artery aneurysm. Normal inferior vena cava. Normal retroperitoneum. Normal urinary bladder. There is a small umbilical hernia containing fat. Small right inguinal hernia containing fat. There are diffuse degenerative changes of the visualized lumbar spine. CT/CTA Abd/Pelvis W/WO Contrast IMPRESSION: Stable examination except for slight increase in size of the aneurysmal dilatation of the right common iliac artery. Electronically Signed: Julian Devlin MD at 14:22 EST ,
[2024-03-16 07:30] LABS: Hematocrit 35.4 % (40-54); Hemoglobin 11.8 g/dL (13.0-16.5); Mean Corp Hgb Conc 33.3 g/dL (32-36); Mean Platelet Vol. 11.7 fl (6.2-12.0); Platelet Count 102 K/mm3 (150-450); RBC Distribution Width CV 13.5 % (11.6-14.6); RBC Distribution Width SD 51.8 fl (35.1-43.9); Red Blood Count 3.37 M/mm3 (4.6-6.2); White Blood Count 1.8 K/mm3 (4.4-11.0)
[2024-03-16 07:50] LABS: CREATININE FINGERSTICK < 1.0 mg/dL (0.70-1.30); EGFR FINGERSTICK > 60.0000 mL/min (>60)
[2024-03-16 07:56] LABS: AST(SGOT) 18 U/L (15-37); Alanine Aminotransfer ALT/SGPT 23 U/L (16-61); Albumin, Serum 3.5 g/dL (3.2-5.0); Alkaline Phosphatase 107 U/L (45-117); Anion Gap 3 (5-15); BUN 14 mg/dL (7-18); BUN/Creat Ratio 11.4 RATIO (10-20); Calcium,Total 8.4 mg/dL (8.5-10.1); Chloride 107 mmol/L (98-107); Cholesterol 157 mg/dL (200); Creatinine, Serum 1.23 mg/dL (0.70-1.30); EST Glomerular Filtration Rate 62 mL/min (>60); Est Glom Filt Rate - Afr Amer 75 mL/min (>60); Globulin 3.6 g/dL (2.2-4.2); Glucose 122 mg/dL (74-106); High Density Lipoprotein 45 mg/dL; PSA,Total - Annual Screen 2.62 ng/mL (0.00-4.00); Potassium 3.6 mmol/L (3.5-5.1); Protein, Total 7.1 g/dL (6.4-8.2); Sodium Level 139 mmol/L (136-145); Triglycerides 132 mg/dL; Uric Acid 6.2 mg/dL (3.5-7.2); Very Low Density Lipoprotein 26 mg/dL (5-40)
== END | disposition home or self-care (01) ==
LOC: CT 07:11
PROVIDERS: PCP Family Medicine; Referring Provider Family Medicine; Visit Provider Family Medicine
DX: Z12.2 Encounter for screening for malignant neoplasm of respiratory organs (principal); Z12.5 Encounter for screening for malignant neoplasm of prostate; I25.10 Atherosclerotic heart disease of native coronary artery without angina pectoris; I72.3 Aneurysm of iliac artery; M10.9 Gout, unspecified; F17.210 Nicotine dependence, cigarettes, uncomplicated
CPT/HCPCS: 36415; 71271; 74174; 80053; 80061; 84153; 84550; 85027; Q9967; G0103

== ENCOUNTER → 2024-09-23 | Outpatient (CLI) | payer MEDICARE, SELFPAY ==
[2024-09-23 10:37] LABS: Hematocrit 34.9 % (40-54); Hemoglobin 11.8 g/dL (13.0-16.5); Mean Corp Hgb Conc 33.8 g/dL (32-36); Mean Corpuscular Hgb 34.4 pg (27.0-32.0); Mean Corpuscular Volume 101.7 fL (80-94); Mean Platelet Vol. 12.7 fl (6.2-12.0); POSITIVE COUNT YES; Platelet Count 95 K/mm3 (150-450); RBC Distribution Width CV 14.2 % (11.6-14.6); Red Blood Count 3.43 M/mm3 (4.6-6.2)
[2024-09-23 10:42] LABS: Scan Indicated on CBC? Y/N YES- FLAGS NOTED
[2024-09-23 11:07] LABS: ALB/GLOB Ratio 1.5 RATIO (0.9-2.4); AST(SGOT) 20 U/L (<=37); Alanine Aminotransfer ALT/SGPT 16 U/L (<=46); Albumin, Serum 4.3 g/dL (3.4-4.8); Alkaline Phosphatase 103 U/L (40-129); Anion Gap 10 (5-15); BUN 13 mg/dL (4-19); BUN/Creat Ratio 10.7 RATIO (10-20); Calcium,Total 8.9 mg/dL (7.6-11.0); Carbon Dioxide 25.1 mmol/L (21.0-32.0); Chloride 104 mmol/L (98-108); Cholesterol 169 mg/dL (<=200); Creatinine, Serum 1.22 mg/dL (0.70-1.20); EST Glomerular Filtration Rate 65 (>60); Globulin 2.8 g/dL (2.2-4.2); Glucose 89 mg/dL (70-99); High Density Lipoprotein 42 mg/dL; Low Density Lipoprotein Calc. 100 mg/dL; Protein, Total 7.1 g/dL (5.9-8.4); Sodium Level 140 mmol/L (133-145); Total Bilirubin 0.46 mg/dL (0.00-1.30); Triglycerides 133 mg/dL; Uric Acid 7.8 mg/dL (3.5-7.2); Very Low Density Lipoprotein 27 mg/dL (5-40); cholesterol:hdl ratio screen 4.02
== END | disposition home or self-care (01) ==
LOC: MFPLAB 09:41
PROVIDERS: PCP Family Medicine; Referring Provider Family Medicine; Visit Provider Family Medicine
DX: I25.10 Atherosclerotic heart disease of native coronary artery without angina pectoris (principal); M10.9 Gout, unspecified
CPT/HCPCS: 36415; 80053; 80061; 84550; 85027